=== PATIENT | male | born 1980 | race Caucasian/White ===

== ENCOUNTER 2016-06-02 15:33 | Emergency (ER) | payer MEDICAID ==
[2016-06-02 15:40] VITALS: BP 116/74
--- NOTE | 2016-06-02 15:58 | EDM.PDOC ---
ED HPI HEADACHE COMPLAINT - General Chief Complaint: Headache Stated Complaint: migraine Time Seen by Provider: 06/02/16 15:40 Source of Information: Reports: Patient History Limitations: Reports: No limitations - History of Present Illness INITIAL COMMENTS - FREE TEXT/NARRATIVE: The patient presents by EMS ground ambulance and states he woke up with the "worst headache of my life" and states it is left frontoparietal and states it is "pressure" and rates it at 8/10. He denies visual changes, facial droop, speech difficulty, seizures, neck or back pain or stiffness, and denies focal weakness or numbness or paresthesias. He denies other symptoms or complaints. He denies injuries or accidents and denies blows to the head or LOC. He admits to frequent marijuana use. He denies alcohol use today. - Related Data Allergies/ADRs: Allergies Allergy/AdvReac Type Severity Reaction Status Date / Time banana [Banana] Allergy Anaphylactic Verified 06/02/16 15:40 Shock pear [Pear] Allergy Anaphylactic Verified 06/02/16 15:40 Shock Penicillins Allergy Rash and Verified 06/02/16 15:40 hives Home Meds: Home Meds Albuterol [IJD: Ventolin HFA] 1 puff INH Q4HR PRN 01/15/16 [History] Albuterol [Proventil Neb Soln] 3 ml INH Q4HR PRN 01/15/16 [History] Ibuprofen [IJD: Ibuprofen] 600 mg PO .EVERY 8 HOURS PRN 06/02/16 [History] Past Medical History HEENT History: Reports: Impaired vision (Wears glasses.). Denies: Allergic rhinitis, Hard of hearing Cardiovascular History: Reports: Arrhythmia, High cholesterol, Other (see below) . Denies: Afib, Angina, Blood clots/VTE/DVT, CAD, Heart Failure, Hypertension, Syncope Other Cardiovascular History: Cardiomegaly by chest x-ray, chronic bradycardia of unknown etiology initially diagnosed on 12/04/13 with apparent cardiology consultation at that time, history of dyslipidemia and mild obesity with no current medical therapy Respiratory History: Reports: Asthma, Intubation, previous, Other (see below). Denies: COPD, Intubation, difficult, PE, Pneumothorax, Sleep apnea, TB Other Respiratory History: Intubation with cholecystectomy Gastrointestinal History: Reports: Cholelithiasis, Chronic constipation, Diverticulosis, Gastritis, GERD, Hemorrhoids, Hiatal hernia, Other (see below). Denies: Celiac disease, Colon polyp, GI bleed, Hepatitis, Inflammatory bowel disease, Irritable bowel syndrome, Pancreatitis, PUD Other Gastrointestinal History: Small hiatal hernia with peptic reflux disease by upper GI and small bowel series, dysfunctional gallbladder requiring surgery as below, diverticulosis by CT scan, negative workup for suspected Crohn's disease with previous EGD and colonoscopy by patient history Genitourinary History: Reports: None. Denies: BPH, Chronic renal insuffiency, Renal calculus, STD, Urinary incontinence, UTI, recurrent Musculoskeletal History: Reports: Arthritis, Back pain, chronic, Fracture, Osteoarthritis, Other (see below). Denies: Amputation, Gout, RA, SLE Other Musculoskeletal History: Chip fracture of the distal phalanx of digit #2 of the left foot on 05/07/15 Neurological History: Reports: None. Denies: Cerebral aneurysms, Concussion, CVA, Headaches, chronic, Head trauma, Migraines, Seizure, TIA Psychiatric History: Reports: Addiction, Anxiety, Depression, Other (see below) . Denies: Abuse, victim of, ADD, ADHD, Psych Hospitalization(s), PTSD, Suicide attempt, Suicidal ideation Other Psychiatric History: Tobacco and marijuana use as below Endocrine/Metabolic History: Reports: None. Denies: Diabetes, type I, Diabetes , type II, Hypothyroidism, IDDM Hematologic History: Reports: None. Denies: Anemia, Blood transfusion(s), Iron deficiency Immunologic History: Reports: None. Denies: AIDS, HIV, SLE Oncologic (Cancer) History: Reports: None. Denies: Basal cell carcinoma, Hodgkin's Lymphoma, Leukemia, Lymphoma, Malignant melanoma, Non-Hodgkin's Lymphoma Dermatologic History: Reports: None. Denies: Eczema, Psoriasis - Infectious Disease History Infectious Disease History: Reports: Chicken pox (As a teenager). Denies: C- difficile, Measles, Mononucleosis, MRSA, Mumps, Pertussis (whooping cough), Rheumatic Fever, Rubella, Scarlet fever, Shingles, TB, VRE - Past Surgical History Head Surgeries/Procedures: Reports: None HEENT Surgical History: Reports: Adenoidectomy, Oral surgery, Tonsillectomy, Other (see below) Other HEENT Surgeries/Procedures: [place] teeth extraction x4 at age 14, tonsillectomy and adenoidectomy at age 1 Cardiovascular Surgical History: Reports: None. Denies: Varicose, Vascular surgery Respiratory Surgical History: Reports: None. Denies: Lung Biopsies, Thoracentesis GI Surgical History: Reports: Cholecystectomy, Colonoscopy, EGD, Hernia, abdominal, Other (see below). Denies: Appendectomy, Hernia, inguinal, Hernia repair/other Other GI Surgeries/Procedures: Laparoscopic cholecystectomy with concomitant local hernia repair in May 2013, EGD and colonoscopy in about September of 2014 by patient history Male Surgical History: Reports: Circumcision, Other (see below) Other Male Surgeries/Procedures: Circumcision as an infant, bilateral testicular torsion reversal in 2000 Neurological Surgical History: Reports: None. Denies: C-Spine, Laminectomy, Lumbar spine, Vertebroplasty Musculoskeletal Surgical History: Reports: None. Denies: Arthroscopic procedure , Carpal tunnel, Ganglion cyst, ORIF, Shoulder surgery Oncologic Surgical History: Reports: None Dermatological Surgical History: Reports: None - Past Imaging History Past Imaging History: Reports: Angiography (Negative catheterization on 11/26/13 at [facility] by patient history), CAT scan (Last CT scan of the abdomen and pelvis on 06/25/14 with previous evaluation on 05/14/13, CT of the brain on 01/31/15), Upper GI x-ray/series (Upper GI with small bowel series on ) Social & Family History - Family History Cardiac: Reports: Hypertension, Other (see below) Other Cardiac Family History: Hypertension in mother Endocrine/Metabolic: Reports: Diabetes, type II, IDDM, Other (see below) Other Endocrine/Metabolic Family History: IDDM in mother Oncologic: Reports: Other (see below) Other Oncologic Family History: Maternal aunt with unknown type of cancer - Tobacco Use Smoking Status *Q: Former Smoker Years of Tobacco use: 18 Packs/Tins Daily: 0.1 Used Tobacco, but Quit: Yes Month Tobacco Last Used: discontinuation of cigarette use in March 2013 Second Hand Smoke Exposure: No - Caffeine Use Caffeine Use: Reports: Soda. Denies: Coffee, Energy drinks, Tea, Other Caffeine Use Comment: 6 sodas per day - Alcohol Use Days Per Week of Alcohol Use: 0 (no previous history of DWI, etc.) Number of Drinks Per Day: 6 (previous 6 beers or mixed drinks per month) Total Drinks Per Week: 0 - Recreational Drug Use Recreational Drug Use: Yes Drug Use in Last 12 Months: Yes Recreational Drug Type: Reports: Marijuana/Hashish (Started marijuana use at age 17 with current daily use). 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 - Physical Exam Exam: See Below Exam Limited By: No limitations General Appearance: alert, WD/WN, no apparent distress Eye Exam: bilateral eye: EOMI, normal fundi, normal inspection, PERRL, vision changes, other (Pupils 4-2 mm and reactive to light bilaterally. EOMI. VF and VA WNL grossly. Fundoscopic exam shows no papilledema) Ears: normal external exam, normal canal, hearing grossly normal, normal TMs Nose: normal inspection, normal mucosa, no blood Throat/Mouth: Normal inspection, Normal lips, Normal teeth, Normal gums, Normal oropharynx, Normal voice Head Exam: atraumatic, normocephalic Neck: normal inspection, supple, non-tender, full range of motion, other (No pain on palpation of cervical spinous processes and no palpable step-offs or defects. ). No: lymphadenopathy (L), lymphadenopathy (R), tender lateral, tender midline Respiratory/Chest: no respiratory distress, lungs clear, normal breath sounds, no accessory muscle use, chest non-tender Cardiovascular: normal peripheral pulses, regular rate, rhythm, no edema, no gallop, no murmur, no rub GI/Abdominal: normal bowel sounds, soft, non tender, no organomegaly, no distention Neuro Exam (Abbreviated): alert, oriented, CN II-XII intact, normal cognition, normal gait, normal reflexes, no motor/sensory deficits, other (GCS 15. No pronator drift of arms or legs. No dysmetria. No clonus or spasticity. Babinksi absent in bilateral LE. Alok absent in bilateral UE. Sensation intact to LT and PP throughout face, neck, trunk, abdomen, and extremities. Motor strength 5/ 5 throughout. Speech fluent with no dysarthria or aphasia. Calculation, naming, and praxis intact.) DTR: 2+: patella (R), patella (L), achilles (R), achilles (L) Back Exam: normal inspection, full range of motion, other (No pain on palpation of thoracic or lumbar spinous processes and no palpable step-offs or defects.). No: paraspinal tenderness, vertebral tenderness Extremities: normal inspection, normal range of motion, non-tender, no pedal edema, normal capillary refill Psychiatric: normal affect, normal mood Skin Exam: Warm, Dry, Intact, Normal color, No rash Course - Vital Signs Last Recorded V/S: Last Vital Signs Temp 36.6 C 06/02/16 15:35 Pulse 55 L 06/02/16 15:35 Resp 22 H 06/02/16 15:35 BP 116/74 06/02/16 15:35 Pulse Ox 100 06/02/16 15:35 - Orders/Labs/Meds Orders: Active Orders 24 hr Category Date Time Status Oxygen Therapy, ED [RC] ASDIRECTED Care 06/02/16 16:35 Active Head wo Cont [CT] Stat Exams 06/02/16 15:52 Taken Sodium Chloride 0.9% [Normal Saline] 500 ml Med 06/02/16 16:15 Active IV ASDIRECTED Medication Orders Sodium Chloride (Normal Saline) 500 mls @ 100 mls/hr IV ASDIRECTED NAILA Last Admin: 06/02/16 16:19 Dose: 100 mls/hr Labs: Laboratory Tests 06/02/16 06/02/16 06/02/16 Range/Units 16:05 16:05 16:05 WBC 8.4 (4.0-10.2) K/uL RBC 5.17 (4.33-5.41) M/uL Hgb 15.2 (13.1-16.8) g/dL Hct 44.0 (39.0-49.0) % MCV 85.1 (84.0-98.0) fL MCH 29.4 (28.2-33.3) pg MCHC 34.5 (31.7-36.0) g/dL RDW 13.3 (11.2-14.1) % Plt Count 256 (150-350) K/uL Neut % (Auto) 73.4 (45.0-80.0) % Lymph % (Auto) 17.1 (10.0-50.0) % [place] % (Auto) 8.6 (2.0-14.0) % Eos % (Auto) 0.8 (0.0-5.0) % Baso % (Auto) 0.1 (0.0-2.0) % Neut # (Auto) 6.13 (1.40-7.00) K/uL Lymph # (Auto) 1.43 (0.50-3.50) K/uL [place] # (Auto) 0.72 (0.00-1.00) K/uL Eos # (Auto) 0.07 (0.00-0.50) K/uL Baso # (Auto) 0.01 (0.00-0.20) K/uL PT 10.7 (9.8-11.7) SEC INR 1.0 APTT 26.8 (23.5-30.0) SEC Sodium 140 (136-145) mmol/L Potassium 3.7 (3.5-5.1) mmol/L Chloride 107 (98-107) mmol/L Carbon Dioxide 19.9 L (21.0-32.0) mmol/L BUN 22 H (7-18) mg/dL Creatinine 0.69 (0.51-1.17) mg/dL Est Cr Clr Drug Dosing 162.45 mL/min Estimated GFR (MDRD) > 60 mL/min Glucose 94 (74-106) mg/dL Calcium 8.1 L (8.5-10.1) mg/dL Total Bilirubin 0.6 (0.2-1.0) mg/dL AST 18 (15-37) U/L ALT 35 (12-78) U/L Alkaline Phosphatase 76 (46-116) IU/L Total Protein 7.2 (6.4-8.2) g/dL Albumin 3.9 (3.4-5.0) g/dL Urine Opiates Screen (NEGATIVE) Urine Methadone Screen (NEGATIVE) U Acetaminophen Screen (NEGATIVE) Ur Barbiturates Screen (NEGATIVE) Ur Tricyclics Screen (NEGATIVE) Ur Phencyclidine Scrn (NEGATIVE) Ur Amphetamine Screen (NEGATIVE) U Methamphetamines Scrn (NEGATIVE) U Benzodiazepines Scrn (NEGATIVE) U Cocaine Metab Screen (NEGATIVE) U Marijuana (THC) Screen (NEGATIVE) Ethyl Alcohol 0.000 (0.000-0.080) g/dL 06/02/16 Range/Units 16:20 WBC (4.0-10.2) K/uL RBC (4.33-5.41) M/uL Hgb (13.1-16.8) g/dL Hct (39.0-49.0) % MCV (84.0-98.0) fL MCH (28.2-33.3) pg MCHC (31.7-36.0) g/dL RDW (11.2-14.1) % Plt Count (150-350) K/uL Neut % (Auto) (45.0-80.0) % Lymph % (Auto) (10.0-50.0) % [place] % (Auto) (2.0-14.0) % Eos % (Auto) (0.0-5.0) % Baso % (Auto) (0.0-2.0) % Neut # (Auto) (1.40-7.00) K/uL Lymph # (Auto) (0.50-3.50) K/uL [place] # (Auto) (0.00-1.00) K/uL Eos # (Auto) (0.00-0.50) K/uL Baso # (Auto) (0.00-0.20) K/uL PT (9.8-11.7) SEC INR APTT (23.5-30.0) SEC Sodium (136-145) mmol/L Potassium (3.5-5.1) mmol/L Chloride (98-107) mmol/L Carbon Dioxide (21.0-32.0) mmol/L BUN (7-18) mg/dL Creatinine (0.51-1.17) mg/dL Est Cr Clr Drug Dosing mL/min Estimated GFR (MDRD) mL/min Glucose (74-106) mg/dL Calcium (8.5-10.1) mg/dL Total Bilirubin (0.2-1.0) mg/dL AST (15-37) U/L ALT (12-78) U/L Alkaline Phosphatase (46-116) IU/L Total Protein (6.4-8.2) g/dL Albumin (3.4-5.0) g/dL Urine Opiates Screen Negative (NEGATIVE) Urine Methadone Screen Negative (NEGATIVE) U Acetaminophen Screen Negative (NEGATIVE) Ur Barbiturates Screen Negative (NEGATIVE) Ur Tricyclics Screen Negative (NEGATIVE) Ur Phencyclidine Scrn Negative (NEGATIVE) Ur Amphetamine Screen Negative (NEGATIVE) U Methamphetamines Scrn Negative (NEGATIVE) U Benzodiazepines Scrn Negative (NEGATIVE) U Cocaine Metab Screen Negative (NEGATIVE) U Marijuana (THC) Screen Positive H (NEGATIVE) Ethyl Alcohol (0.000-0.080) g/dL Meds: Medications Generic Name Dose Route Start Last Admin Trade Name Freq PRN Reason Stop Dose Admin Sodium Chloride 500 mls @ 100 mls/hr 06/02/16 16:15 06/02/16 16:19 Normal Saline IV 100 mls/hr ASDIRECTED NAILA Administration Discontinued Medications Generic Name Dose Route Start Last Admin Trade Name Freq PRN Reason Stop Dose Admin Calcium Carbonate/Glycine 1,000 mg 06/02/16 16:30 06/02/16 16:36 Tums PO 06/02/16 16:31 1,000 mg ONETIME ONE Administration Diphenhydramine HCl 50 mg 06/02/16 16:35 06/02/16 16:45 Benadryl IVPUSH 06/02/16 16:36 50 mg ONETIME ONE Administration Ketorolac Tromethamine 30 mg 06/02/16 16:35 06/02/16 16:45 Toradol IVPUSH 06/02/16 16:36 30 mg ONETIME ONE Administration Lorazepam 2 mg 06/02/16 16:35 06/02/16 16:46 Ativan IVPUSH 06/02/16 16:36 2 mg ONETIME ONE Administration Ondansetron HCl 4 mg 06/02/16 16:30 06/02/16 16:38 Zofran IVPUSH 06/02/16 16:31 4 mg ONETIME ONE Administration - Re-Assessments/Exams Free Text/Narrative Re-Assessment/Exam: 06/02/16 20:21 Significant improvement with migraine and nausea with current treatment. Departure - Departure Time of Disposition: 20:21 Disposition: Home, Self-Care 01 Clinical Impression: Migraine Qualifiers: Migraine type: without aura Status migrainosus presence: without status migrainosus Intractability: not intractable Qualified Code(s): G43.009 - Migraine without aura, not intractable, without status migrainosus Instructions: Migraine Headache Forms: ED Department Discharge Additional Instructions: 1. IV inserted per EMS in transit. 2. Oxygen by nasal cannula at 2 L in ER. 3. NS at 100 mL/hour in ER. 4. Oxygen per NC at 2L. 5. Toradol 30 mg IV in ER. 6. Zofran 4 mg IV in ER. 7. Ativan 2 mg IV. 8. Diphenhydramine 50 mg IV in ER. 9. Calcium carbonate 1,000 mg PO in ER for mild hypocalcemia. 10. Followup with PCP next week to discuss migraines and consideration for prescription for abortive and prophylactic medications. 11. Return to ER with severe/refractory headache, nausea and vomiting, visual changes, speech difficulty, facial droop, focal weakness or numbness or tingling , or other emergent concerns. - My Orders Last 24 Hours: My Active Orders 06/02/16 15:52 Head wo Cont [CT] Stat 06/02/16 16:15 Sodium Chloride 0.9% [Normal Saline] 500 ml IV ASDIRECTED 06/02/16 16:35 Oxygen Therapy, ED [RC] ASDIRECTED - Assessment/Plan Last 24 Hours: My Active Orders 06/02/16 15:52 Head wo Cont [CT] Stat 06/02/16 16:15 Sodium Chloride 0.9% [Normal Saline] 500 ml IV ASDIRECTED 06/02/16 16:35 Oxygen Therapy, ED [RC] ASDIRECTED Assessment:: Migraine Plan: 1. IV inserted per EMS in transit. 2. Oxygen by nasal cannula at 2 L in ER. 3. NS at 100 mL/hour in ER. 4. Oxygen per NC at 2L. 5. Toradol 30 mg IV in ER. 6. Zofran 4 mg IV in ER. 7. Ativan 2 mg IV. 8. Diphenhydramine 50 mg IV in ER. 9. Calcium carbonate 1,000 mg PO in ER for mild hypocalcemia. 10. May resume ibuprofen 400-800 mg or other abortive migraine medications in AM beginning 06/03/2016. 11. Followup with PCP next week to discuss migraines and consideration for prescription for abortive and prophylactic medications. 12. Return to ER with severe/refractory headache, nausea and vomiting, visual changes, speech difficulty, facial droop, focal weakness or numbness or tingling , or other emergent concerns.
[2016-06-02] MEDS ORDERED: Sodium Chloride 0.9% 500 ML IV SCH (16:15)
[2016-06-02 16:27] LABS: CHLORIDE,CL 107 mmol/L (98-107); SODIUM,NA 140 mmol/L (136-145)
[2016-06-02] MEDS ORDERED: Calcium Carbonate 500 MG Tab.Chew PO ONE (16:30)
[2016-06-02] MEDS ORDERED: Ondansetron 4 MG/2 ML SDV IVPUSH ONE (16:30)
[2016-06-02] MEDS ORDERED: Ketorolac 30 MG/ML SDV IVPUSH ONE (16:35)
[2016-06-02] MEDS ORDERED: diphenhydrAMINE 50 MG/ML SDV IVPUSH ONE (16:35)
[2016-06-02] MEDS ORDERED: LORazepam 2 MG/ML MDV IVPUSH ONE (16:35)
== END 2016-06-02 21:39 | disposition home or self-care (01) ==
LOC: LL.ED 15:33
DX: G43.009 Migraine without aura, not intractable, without status migrainosus (principal); J45.909 Unspecified asthma, uncomplicated; E78.00 Pure hypercholesterolemia, unspecified; K21.9 Gastro-esophageal reflux disease without esophagitis; F41.9 Anxiety disorder, unspecified; F32.9 Major depressive disorder, single episode, unspecified; Z87.891 Personal history of nicotine dependence; Z90.49 Acquired absence of other specified parts of digestive tract; Z88.0 Allergy status to penicillin
CPT/HCPCS: 36415; 70450; 80053; 80305; 85025; 85610; 85730; 96361; 96374; 96375; 99283; A9270; G0480; J1200; J1885; J2060; J2405; J7040

== ENCOUNTER 2017-01-20 02:23 | Emergency (ER) | payer MEDICAID ==
[2017-01-20 02:32] VITALS: BP 122/70
--- NOTE | 2017-01-20 03:10 | EDM.PDOC ---
ED HPI GENERAL MEDICAL PROBLEM - General Chief Complaint: General Stated Complaint: SOB, ear pressure, chills Time Seen by Provider: 01/20/17 02:35 Source of Information: Reports: Patient History Limitations: Reports: No Limitations - History of Present Illness INITIAL COMMENTS - FREE TEXT/NARRATIVE: Patient is a 36-year-old male who presents to the ER with chief complaint of not feeling well frontal and sinus congestion cough denies fever,has postnasal drip with difficulty breathing at times states that this started about a week before Luis was good for about 4 days around Luis and now has gotten worse. His whole family and coworkers are symptomatic at this time. Onset: Gradual Duration: Week(s):, Getting Worse Location: Reports: Chest Quality: Reports: Burning (With cough), Pressure (Maxillary sinus pressure) Severity: Mild Improves with: Reports: None Worsens with: Reports: None Context: Reports: Sick Contact Associated Symptoms: Reports: Cough, Shortness of Breath Treatments DIRECTOR CARDIOLOGY: Reports: Other Medication(s) Chest Pain Score (Numeric/FACES): 4 - Related Data Allergies Allergy/AdvReac Type Severity Reaction Status Date / Time banana [Banana] Allergy Anaphylactic Verified 01/20/17 02:24 Shock pear [Pear] Allergy Anaphylactic Verified 01/20/17 02:24 Shock Penicillins Allergy Rash and Verified 01/20/17 02:24 hives Home Meds: Home Meds Albuterol [IJD: Ventolin HFA] 1 puff INH Q4HR PRN 01/15/16 [History] Albuterol [Proventil Neb Soln] 3 ml INH Q4HR PRN 01/15/16 [History] Ibuprofen [IJD: Ibuprofen] 600 mg PO .EVERY 8 HOURS PRN 06/02/16 [History] Dextromethorphan HB/Doxylamine [Vicks Nyquil Cough] 10 ml PO Q6H 01/20/17 [ History] Eucalyptus Oil/Menthol/Camphor [Vicks Vaporub Ointment] 1 dose TOP Q4H PRN 01/20 [History] Guaifenesin/Pseudoephedrne HCl [Mucinex D ER Tablet] 1 tab PO Q12H PRN 01/20/17 [History] diphenhydrAMINE HCl [Benadryl] 50 mg PO Q8H PRN 01/20/17 [History] Past Medical History HEENT History: Reports: Impaired Vision Other HEENT History: Glasses Cardiovascular History: Reports: Arrhythmia, High Cholesterol, Other (See Below) Other Cardiovascular History: Cardiomegaly by chest x-ray, chronic bradycardia of unknown etiology initially diagnosed on 12/04/13 with apparent cardiology consultation at that time, history of dyslipidemia and mild obesity with no current medical therapy Respiratory History: Reports: Asthma, Intubation, Previous, Other (See Below) Other Respiratory History: Intubation with cholecystectomy Gastrointestinal History: Reports: Cholelithiasis, Chronic Constipation, Diverticulosis, Gastritis, GERD, Hemorrhoids, Hiatal Hernia, Other (See Below) Other Gastrointestinal History: Small hiatal hernia with peptic reflux disease by upper GI and small bowel series, dysfunctional gallbladder requiring surgery as below, diverticulosis by CT scan, negative workup for suspected Crohn's disease with previous EGD and colonoscopy by patient history Genitourinary History: Reports: None. Denies: BPH, Chronic Renal Insuffiency, Renal Calculus, STD, Urinary Incontinence, UTI, Recurrent Musculoskeletal History: Reports: Arthritis, Back Pain, Chronic, Fracture, Osteoarthritis, Other (See Below) Other Musculoskeletal History: Chip fracture of the distal phalanx of digit #2 of the left foot on 05/07/15 Neurological History: Reports: None Psychiatric History: Reports: Addiction, Anxiety, Depression, Other (See Below) Other Psychiatric History: Tobacco and marijuana use as below Endocrine/Metabolic History: Reports: None Hematologic History: Reports: None Immunologic History: Reports: None Oncologic (Cancer) History: Reports: None Dermatologic History: Reports: None - Infectious Disease History Infectious Disease History: Reports: Chicken Pox - Past Surgical History Head Surgeries/Procedures: Reports: None HEENT Surgical History: Reports: Adenoidectomy, Oral Surgery, Tonsillectomy, Other (See Below) GI Surgical History: Reports: Cholecystectomy, Colonoscopy, EGD, Hernia, Abdominal, Other (See Below) Male Surgical History: Reports: Circumcision, Other (See Below) Neurological Surgical History: Reports: None Oncologic Surgical History: Reports: None Dermatological Surgical History: Reports: None - Past Imaging History Past Imaging History: Reports: Angiography, CAT Scan, Upper GI X-Ray/Series Social & Family History - Family History Cardiac: Reports: Hypertension, Other (See Below) Other Cardiac Family History: Hypertension in mother Endocrine/Metabolic: Reports: Diabetes, type II, IDDM, Other (See Below) Other Endocrine/Metabolic Family History: IDDM in mother Oncologic: Reports: Other (See Below) Other Oncologic Family History: Maternal aunt with unknown type of cancer - Tobacco Use Smoking Status *Q: Former Smoker Years of Tobacco use: 18 Packs/Tins Daily: 0.1 Used Tobacco, but Quit: Yes Month Tobacco Last Used: discontinuation of cigarette use in March 2013 Second Hand Smoke Exposure: No - Caffeine Use Caffeine Use: Reports: Soda Caffeine Use Comment: 6 sodas per day - Alcohol Use Days Per Week of Alcohol Use: 0 (no previous history of DWI, etc.) Number of Drinks Per Day: 6 (previous 6 beers or mixed drinks per month) Total Drinks Per Week: 0 - Recreational Drug Use Recreational Drug Use: Yes Drug Use in Last 12 Months: Yes Recreational Drug Type: Reports: Marijuana/Hashish (Started marijuana use at age 17 with current daily use). Denies: Amphetamines (Speed), Cocaine, Heroin, Inhalants (Glues, Solvents, Aerosols), LSD (Acid), Methamphetamine, Morphine Recreational Drug Use Frequency: Daily Recreational Drug Last Use: 2 L of pop per day - Living Situation & Occupation Living situation: Reports: , with Family Occupation: Employed ED ROS GENERAL - Review of Systems Review Of Systems: See Below Constitutional: Reports: No Symptoms HEENT: Reports: Sinus Problem Respiratory: Reports: Shortness of Breath, Cough Cardiovascular: Reports: No Symptoms Endocrine: Reports: No Symptoms GI/Abdominal: Reports: No Symptoms : Reports: No Symptoms Musculoskeletal: Reports: No Symptoms Skin: Reports: No Symptoms Neurological: Reports: No Symptoms Psychiatric: Reports: No Symptoms Hematologic/Lymphatic: Reports: No Symptoms Immunologic: Reports: No Symptoms ED EXAM, GENERAL - Physical Exam Exam: See Below Exam Limited By: No Limitations General Appearance: Alert, WD/WN, No Apparent Distress Ears: Normal External Exam, Normal Canal, Hearing Grossly Normal Ear Exam: Right Ear: TM Bulging Nose: Nasal Drainage, Clear Rhinorrhea Throat/Mouth: Normal Inspection, Normal Lips, Normal Teeth, Normal Gums, Normal Oropharynx, Normal Voice, No Airway Compromise Head: Atraumatic, Normocephalic, Sinus Tenderness Neck: Normal Inspection, Supple, Non-Tender, Full Range of Motion Respiratory/Chest: Lungs Clear, Decreased Breath Sounds Cardiovascular: Normal Peripheral Pulses, Regular Rate, Rhythm, No Edema, No Gallop, No JVD, No Murmur, No Rub GI/Abdominal: Normal Bowel Sounds, Soft, Non-Tender, No Organomegaly, No Distention, No Abnormal Bruit, No Mass (Male) Exam: Deferred Rectal (Males) Exam: Deferred Back Exam: Normal Inspection, Full Range of Motion, NT Extremities: Normal Inspection, Normal Range of Motion, Non-Tender, Normal Capillary Refill, No Pedal Edema Neurological: Alert, Oriented, CN II-XII Intact, Normal Cognition, Normal Gait, Normal Reflexes, No Motor/Sensory Deficits Psychiatric: Normal Affect, Normal Mood Skin Exam: Warm, Dry, Intact, Normal Color, No Rash Lymphatic: No Adenopathy Course - Vital Signs Last Recorded V/S: Last Vital Signs Temp 98.2 F 01/20/17 02:30 Pulse 56 L 01/20/17 02:30 Resp 16 01/20/17 02:30 BP 122/70 01/20/17 02:30 Pulse Ox 100 01/20/17 02:30 - Orders/Labs/Meds Orders: Active Orders 24 hr Category Date Time Status CXR [Chest 2V] [CR] Stat Exams 01/20/17 02:37 Ordered CBC WITH AUTO DIFF [HEME] Stat Lab 01/20/17 02:50 Received Departure - Departure Time of Disposition: 03:30 Disposition: Home, Self-Care 01 Condition: Fair Clinical Impression: Acute sinusitis - Discharge Information Referrals: PCP,None [Primary Care Provider] - - Problem List & Annotations (1) Acute sinusitis SNOMED Code(s): 94556949 Code(s): J01.90 - ACUTE SINUSITIS, UNSPECIFIED Status: Acute Annotation/ Comment:: White count is normal chest x-ray is normal this appears to be viral in nature and this time no antibiotic treatment is warranted we will place him on Claritin-D one tablet once a day for symptomatic relief. - Problem List Review Problem List Initiated/Reviewed/Updated: Yes - My Orders Last 24 Hours: My Active Orders 01/20/17 02:37 CXR [Chest 2V] [CR] Stat 01/20/17 02:50 CBC WITH AUTO DIFF [HEME] Stat - Assessment/Plan Last 24 Hours: My Active Orders 01/20/17 02:37 CXR [Chest 2V] [CR] Stat 01/20/17 02:50 CBC WITH AUTO DIFF [HEME] Stat Plan: Patient will be treated for symptomatic relief Claritin-D one tablet every 24 hours a prescription was given to him
== END 2017-01-20 03:40 | disposition home or self-care (01) ==
LOC: LL.ED 02:23
DX: J01.90 Acute sinusitis, unspecified (principal); Z91.018 Allergy to other foods; Z88.0 Allergy status to penicillin; Z79.899 Other long term (current) drug therapy
CPT/HCPCS: 36415; 71020; 85025; 99285

== ENCOUNTER 2019-01-06 22:26 | Emergency (ER) | payer BC, MEDICAID ==
[2019-01-06 22:40] VITALS: BP 121/70; PULSE 70
--- NOTE | 2019-01-06 22:43 | EDM.PDOC ---
ED HPI GENERAL MEDICAL PROBLEM - General Chief Complaint: General Stated Complaint: cold symptoms/congestion Time Seen by Provider: 01/06/19 22:29 Source of Information: Reports: Patient History Limitations: Reports: No Limitations - History of Present Illness INITIAL COMMENTS - FREE TEXT/NARRATIVE: Patient comes to ER with complaint of URI symptoms. First became ill on Saturday , 3 days ago. Describes nasal congestion, fatigue and body aches. Had one loose stool yesterday. Body aches improved. Tried Claritin D for nasal congestion and it did not help. No other acute changes. Whole family is ill with similar symptoms. and two kids were put on antibiotics but had only been ill for 2-4 days. Patient is not certain why antibiotics were needed. Another son also just became ill at same time as patient and is not on antibiotics. - Related Data Allergies Allergy/AdvReac Type Severity Reaction Status Date / Time banana [Banana] Allergy Anaphylactic Verified 01/28/18 06:49 Shock pear [Pear] Allergy Anaphylactic Verified 01/28/18 06:49 Shock Penicillins Allergy Rash and Verified 01/28/18 06:49 hives Home Meds: Home Meds Albuterol [IJD: Ventolin HFA] 1 puff INH Q4HR PRN 01/15/16 [History] Albuterol [Proventil Neb Soln] 3 ml INH Q4HR PRN 01/15/16 [History] Dextromethorphan HB/Doxylamine [Vicks Nyquil Cough] 10 ml PO Q6H 01/20/17 [ History] Eucalyptus Oil/Menthol/Camphor [Vicks Vaporub Ointment] 1 dose TOP Q4H PRN 01/20 [History] diphenhydrAMINE HCl [Benadryl] 50 mg PO Q8H PRN 01/20/17 [History] Cyclobenzaprine [Flexeril] 10 mg PO TID PRN #30 tab 01/28/18 [Rx] Past Medical History HEENT History: Reports: Impaired Vision. Denies: Allergic Rhinitis, Cataract, Hard of Hearing, Macular Degeneration, Retinal Detachment Other HEENT History: Patient currently wears glasses. Cardiovascular History: Reports: Arrhythmia, High Cholesterol, Other (See Below) . Denies: Afib, Aneurysm, Blood Clots/VTE/DVT, CAD, Heart Failure, Heart Murmur , Hypertension, FL, PVD, Syncope Other Cardiovascular History: Cardiomegaly by chest x-ray, chronic bradycardia of unknown etiology initially diagnosed on 12/04/13 with apparent cardiology consultation at that time, history of dyslipidemia and mild obesity with no current medical therapy. Respiratory History: Reports: Asthma, Bronchitis, Recurrent, COPD, Intubation, Previous, Other (See Below). Denies: Intubation, Difficult, PE, Pneumothorax, Sleep Apnea, TB Other Respiratory History: Intubation with cholecystectomy Gastrointestinal History: Reports: Cholelithiasis, Chronic Constipation, Diverticulosis, Gastritis, GERD, Hemorrhoids, Hiatal Hernia, Other (See Below). Denies: Bowel Obstruction, Celiac Disease, Chronic Diarrhea, Fecal Incontinence, Hepatitis, Inflammatory Bowel Disease, Irritable Bowel Syndrome, Jaundice, Pancreatitis, PUD Other Gastrointestinal History: Small hiatal hernia with peptic reflux disease by upper GI and small bowel series, dysfunctional gallbladder requiring surgery as below, diverticulosis by CT scan, negative workup for suspected Crohn's disease with previous EGD and colonoscopy by patient history Genitourinary History: Reports: None. Denies: BPH, Chronic Renal Insuffiency, Prostate Disorder, Renal Calculus, STD, Urinary Incontinence, UTI, Recurrent Musculoskeletal History: Reports: Arthritis, Back Pain, Chronic, Fracture, Osteoarthritis, Other (See Below). Denies: Amputation, Gout, Neck Pain, Chronic , RA, SLE Other Musculoskeletal History: Chip fracture of the distal phalanx of digit #2 of the left foot on 05/07/15 Neurological History: Reports: Headaches, Chronic, Migraines. Denies: Cerebral Aneurysms, Concussion, CVA, Head Trauma, MS, Neuropathy, Peripheral, Parkinson's , Seizure, TIA Psychiatric History: Reports: Addiction, Anxiety, Depression, Other (See Below) . Denies: Abuse, Victim of, ADHD, Psych Hospitalization(s), PTSD, Suicide Attempt, Suicidal Ideation Other Psychiatric History: Tobacco and marijuana use as below Endocrine/Metabolic History: Reports: Obesity/BMI 30+. Denies: Diabetes, Type I , Diabetes, Type II, Diabetes Mellitus, Type 3c, Hypothyroidism, IDDM Hematologic History: Reports: None. Denies: Anemia, Blood Transfusion(s), Iron Deficiency Immunologic History: Reports: None. Denies: AIDS, HIV, SLE Oncologic (Cancer) History: Reports: None. Denies: Basal Cell Carcinoma, Colon , Hodgkin's Lymphoma, Leukemia, Lymphoma, Malignant Melanoma, Non-Hodgkin's Lymphoma, Prostate, Squamous Cell Carcinoma Dermatologic History: Reports: None. Denies: Eczema, Psoriasis - Infectious Disease History Infectious Disease History: Reports: Chicken Pox. Denies: C-Difficile, Measles , Meningitis, Mononucleosis, MRSA, Mumps, Pertussis (Whooping Cough), Rubella, Scarlet Fever, Shingles, TB, VRE - Past Surgical History Head Surgeries/Procedures: Reports: None HEENT Surgical History: Reports: Adenoidectomy, Oral Surgery, Tonsillectomy, Other (See Below). Denies: Cataract Surgery, Eye Surgery, Laser Surgery, Myringotomy w Tube(s), Naso-Sinus Surgery Other HEENT Surgeries/Procedures: [place] teeth extraction 4 at age 14. Tonsillectomy and adenoidectomy at age 1. Cardiovascular Surgical History: Reports: None. Denies: Varicose, Vascular Surgery Respiratory Surgical History: Reports: None. Denies: Thoracentesis GI Surgical History: Reports: Cholecystectomy, Colonoscopy, EGD, Hernia, Abdominal, Other (See Below). Denies: Appendectomy, Hernia, Inguinal, Hernia Repair/Other, Polypectomy Other GI Surgeries/Procedures: Laparoscopic cholecystectomy with concomitant low -dose hernia repair in May 2013. EGD and colonoscopy in about September 2014 by patient history. Male Surgical History: Reports: Circumcision, Other (See Below). Denies: TURP-Transurethral Resection of Prostate, Vasectomy Other Male Surgeries/Procedures: Circumcision as an . Bilateral testicular torsion reversal in 2000. Endocrine Surgical History: Reports: None. Denies: Thyroid Biopsy Neurological Surgical History: Reports: None. Denies: C-Spine, Discectomy, Laminectomy, Lumbar Spine, Sacral Spine, Spinal Fusion, Thoracic Spine, Vertebroplasty Musculoskeletal Surgical History: Reports: None. Denies: Arthroscopic Procedure , Carpal Tunnel, Ganglion Cyst, Joint Replacement, ORIF, Shoulder Surgery Oncologic Surgical History: Reports: None Dermatological Surgical History: Reports: None - Past Imaging History Past Imaging History: Reports: Angiography (Negative heart catheterization on at [facility] by patient history.), CAT Scan (CT scan of the head on 06/02/16 [address] 01/31/15. CT of the abdomen and pelvis on 04/24/16 with previous evaluations on 06/25/14 and 05/14/13.), Upper GI X-Ray/Series (08/05/14.) Social & Family History - Family History Cardiac: Reports: Hypertension, Other (See Below) Other Cardiac Family History: Hypertension in mother Endocrine/Metabolic: Reports: Diabetes, type II, IDDM, Other (See Below) Other Endocrine/Metabolic Family History: IDDM in mother Oncologic: Reports: Other (See Below) Other Oncologic Family History: Maternal aunt with unknown type of cancer - Caffeine Use Caffeine Use: Reports: Tea (Four glasses per day). Denies: Coffee, Energy Drinks, Soda Caffeine Use Comment: 6 sodas per day - Sexual History Sexual History: Reports: Single Partner - Living Situation & Occupation Living situation: Reports: (2010, 4 children), with Family Occupation: Employed ([employer]. 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 Denies: Fever, Chills, Night Sweats, Diaphoresis HEENT: Reports: Sinus Problem. Denies: Ear Discharge, Ear Pain, Eye Discharge, Eye Pain, Rhinitis, Throat Pain, Vertigo, Vision Change Respiratory: Reports: No Symptoms. Denies: Cough Cardiovascular: Reports: No Symptoms GI/Abdominal: Reports: Diarrhea, Decreased Appetite. Denies: Abdominal Pain, Melena, Nausea, Vomiting : Reports: No Symptoms Musculoskeletal: Reports: Other (body aches) Skin: Reports: No Symptoms Neurological: Reports: No Symptoms. Denies: Headache Psychiatric: Reports: No Symptoms Hematologic/Lymphatic: Reports: No Symptoms Immunologic: Reports: No Symptoms ED EXAM, GENERAL - Physical Exam Exam: See Below Exam Limited By: No Limitations General Appearance: Alert, WD/WN, No Apparent Distress Eye Exam: Bilateral Eye: EOMI, PERRL Ears: Normal External Exam, Normal Canal, Hearing Grossly Normal, Normal TMs Nose: Normal Inspection Throat/Mouth: Normal Inspection, Normal Lips, Normal Oropharynx, Normal Voice, No Airway Compromise Head: Atraumatic, Normocephalic Neck: Normal Inspection, Supple, Non-Tender, Full Range of Motion Respiratory/Chest: No Respiratory Distress, Lungs Clear, Normal Breath Sounds, No Accessory Muscle Use, Chest Non-Tender Cardiovascular: Normal Peripheral Pulses, Regular Rate, Rhythm, No Murmur Peripheral Pulses: 2+: Radial (L), Radial (R) GI/Abdominal: Normal Bowel Sounds, Soft, Non-Tender, No Distention (Male) Exam: Deferred Rectal (Males) Exam: Deferred Back Exam: No: Muscle Spasm Extremities: Normal Range of Motion, Normal Capillary Refill Neurological: Alert, Oriented, Normal Cognition, Normal Gait Psychiatric: Normal Affect, Normal Mood Skin Exam: Warm, Dry, Intact, Normal Color Course - Vital Signs Last Recorded V/S: Last Vital Signs Temp 36.3 C 01/06/19 22:39 Pulse 70 01/06/19 22:39 Resp 20 01/06/19 22:39 BP 121/70 01/06/19 22:39 Pulse Ox 98 01/06/19 22:39 - Re-Assessments/Exams Free Text/Narrative Re-Assessment/Exam: 01/06/19 22:50 Suspect viral URI. No further testing performed at this time--patient afebrile and no focal findings on exam. Reassurance. Follow up as needed. Departure - Departure Time of Disposition: 22:42 Disposition: Home, Self-Care 01 Condition: Good Clinical Impression: Viral infection - Discharge Information *PRESCRIPTION DRUG MONITORING PROGRAM REVIEWED*: Not Applicable *COPY OF PRESCRIPTION DRUG MONITORING REPORT IN PATIENT DRAKE: Not Applicable Instructions: Viral Respiratory Infection, [id number] Forms: ED Department Discharge Additional Instructions: Follow up as needed if there are problems. OK to try over the counter cold remedies but they often are not very helpful. Tylenol or ibuprofen for aches/discomfort as needed. Stay well hydrated!
== END 2019-01-06 23:02 | disposition home or self-care (01) ==
LOC: LL.ED 22:26
DX: B34.9 Viral infection, unspecified (principal); J44.9 Chronic obstructive pulmonary disease, unspecified; E66.9 Obesity, unspecified; Z68.30 Body mass index [BMI] 30.0-30.9, adult; Z88.0 Allergy status to penicillin; Z91.018 Allergy to other foods
CPT/HCPCS: 99282; 99283

== ENCOUNTER 2019-02-05 22:26 | Emergency (ER) | payer BC ==
[2019-02-05 22:35] VITALS: BP 138/83; PULSE 67
--- NOTE | 2019-02-05 22:41 | EDM.PDOC ---
ED HPI GENERAL MEDICAL PROBLEM - General Chief Complaint: Lower Extremity Injury/Pain Stated Complaint: ingrown toenail Time Seen by Provider: 02/05/19 22:40 Source of Information: Reports: Patient, Old Records ([facility] chart/EMR.) History Limitations: Reports: No Limitations - History of Present Illness INITIAL COMMENTS - FREE TEXT/NARRATIVE: The patient drove himself to the emergency room via private automobile for evaluation of an ingrown toenail with increased 6/10 right great toe pain since this morning. He did try to cut the nail out on his own and applied Neosporin prior to arrival. No history of other significant injury, etc. with patient having a previous history of ingrown toenails. No recent history of abdominal pain, heartburn, nausea, diarrhea, melena, gross hematochezia, or any food intolerance, including fatty foods, etc.. The patient also denies any recent fever, cough, wheezing, dyspnea, etc.. Onset: Today, Gradual Onset Date: 02/05/19 Duration: Constant, Getting Worse Location: Reports: Lower Extremity, Right. Denies: Radiates to Quality: Reports: Same as Previous Episode, Throbbing Severity: Moderate Improves with: Reports: None Worsens with: Reports: None Context: Reports: Other (As above). 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 Denies: Allergic Rhinitis, Hard of Hearing, Otitis Media, Retinal Detachment Other HEENT History: Patient currently wears glasses. Cardiovascular History: Reports: Arrhythmia, High Cholesterol, Other (See Below) . Denies: Afib, Blood Clots/VTE/DVT, CAD, Heart Failure, Heart Murmur, Hypertension, Syncope Other Cardiovascular History: Cardiomegaly by chest x-ray, chronic bradycardia of unknown etiology initially diagnosed on 12/04/13 with apparent cardiology consultation at that time, history of dyslipidemia and mild obesity with no current medical therapy. Respiratory History: Reports: Asthma, Bronchitis, Recurrent, COPD, Intubation, Previous, Other (See Below). Denies: Intubation, Difficult, PE, Pneumothorax, Sleep Apnea Other Respiratory History: Intubation with cholecystectomy Gastrointestinal History: Reports: Cholelithiasis, Chronic Constipation, Diverticulosis, Gastritis, GERD, Hemorrhoids, Hiatal Hernia, Other (See Below). Denies: Celiac Disease, Chronic Diarrhea, Colon Polyp, Fecal Incontinence, Hepatitis, Inflammatory Bowel Disease, Irritable Bowel Syndrome, Jaundice, Pancreatitis, PUD Other Gastrointestinal History: Small hiatal hernia with peptic reflux disease by upper GI and small bowel series, dysfunctional gallbladder requiring surgery as below, diverticulosis by CT scan, negative workup for suspected Crohn's disease with previous EGD and colonoscopy by patient history Genitourinary History: Reports: None. Denies: Acute Renal Failure, BPH, Chronic Renal Insuffiency, Renal Calculus, STD, Urinary Incontinence, UTI, Recurrent Musculoskeletal History: Reports: Arthritis, Back Pain, Chronic, Fracture, Osteoarthritis, Other (See Below). Denies: Gout, Neck Pain, Chronic, RA, SLE Other Musculoskeletal History: Chip fracture of the distal phalanx of digit #2 of the left foot on 05/07/15 Neurological History: Reports: Headaches, Chronic, Migraines. Denies: Cerebral Aneurysms, Concussion, CVA, Head Trauma, MS, Neuropathy, Peripheral, Parkinson's , Seizure, TIA Psychiatric History: Reports: Addiction, Anxiety, Depression, Other (See Below) . Denies: Abuse, Victim of, ADD, ADHD, Psych Hospitalization(s), Suicide Attempt, Suicidal Ideation Other Psychiatric History: Tobacco and marijuana use as below Endocrine/Metabolic History: Reports: Obesity/BMI 30+. Denies: Diabetes, Type I , Diabetes, Type II, Diabetes Mellitus, Type 3c, Hypothyroidism, IDDM Hematologic History: Reports: None. Denies: Anemia, Blood Transfusion(s), Iron Deficiency Immunologic History: Reports: None. Denies: AIDS, HIV, SLE Oncologic (Cancer) History: Reports: None. Denies: Basal Cell Carcinoma, Hodgkin's Lymphoma, Leukemia, Lymphoma, Malignant Melanoma, Non-Hodgkin's Lymphoma, Squamous Cell Carcinoma Dermatologic History: Reports: Cellulitis, Other (See Below) Other Dermatologic History: Recurrent ingrown toenails. - Infectious Disease History Infectious Disease History: Reports: Chicken Pox. Denies: C-Difficile, Measles , Meningitis, Mononucleosis, MRSA, Mumps, Pertussis (Whooping Cough), Rheumatic Fever, Rubella, Scarlet Fever, Shingles, TB, VRE - Past Surgical History Head Surgeries/Procedures: Reports: None HEENT Surgical History: Reports: Adenoidectomy, Oral Surgery, Tonsillectomy, Other (See Below). Denies: Eye Surgery, Laser Surgery, LASIK, Myringotomy w Tube(s), Naso-Sinus Surgery Other HEENT Surgeries/Procedures: Gardner teeth extraction 4 at age 14. Tonsillectomy and adenoidectomy at age 1. Cardiovascular Surgical History: Reports: None. Denies: Varicose Respiratory Surgical History: Reports: None. Denies: Thoracentesis GI Surgical History: Reports: Cholecystectomy, Colonoscopy, EGD, Hernia, Abdominal, Other (See Below). Denies: Appendectomy, Hernia, Inguinal, Hernia Repair/Other, Polypectomy Other GI Surgeries/Procedures: Laparoscopic cholecystectomy with concomitant low -dose hernia repair in May 2013. EGD and colonoscopy in about September 2014 by patient history. Male Surgical History: Reports: Circumcision, Other (See Below). Denies: Vasectomy Other Male Surgeries/Procedures: Circumcision as an . Bilateral testicular torsion reversal in 2000. Endocrine Surgical History: Reports: None Neurological Surgical History: Reports: None. Denies: C-Spine, Discectomy, Laminectomy, Lumbar Spine, Sacral Spine, Spinal Fusion, Thoracic Spine, Vertebroplasty Musculoskeletal Surgical History: Reports: None. Denies: Arthroscopic Procedure , Carpal Tunnel, Ganglion Cyst, Joint Replacement, ORIF, Shoulder Surgery Oncologic Surgical History: Reports: None Dermatological Surgical History: Reports: None - Past Imaging History Past Imaging History: Reports: Angiography (Negative heart catheterization on at [facility] by patient history.), CAT Scan (CT scan of the head on 06/02/16 [address] 01/31/15. CT of the abdomen and pelvis on 04/24/16 with previous evaluations on 06/25/14 and 05/14/13.), Upper GI X-Ray/Series (08/05/14.) Social & Family History - Family History Cardiac: Reports: Hypertension, Other (See Below) Other Cardiac Family History: Hypertension in mother Endocrine/Metabolic: Reports: Diabetes, type II, IDDM, Other (See Below) Other Endocrine/Metabolic Family History: IDDM in mother Oncologic: Reports: Other (See Below) Other Oncologic Family History: Maternal aunt with unknown type of cancer - Tobacco Use Smoking Status *Q: Former Smoker Tobacco Use Within Last Twelve Months: Cigarettes Years of Tobacco use: 20 Packs/Tins Daily: 0.1 Packs/Tins Daily Comment: The patient discontinued cigarette use in March 2013 with 2 cigars/day thereafter with no tobacco use since May 2018 Used Tobacco, but Quit: Yes Smoking Cessation Information Provided To Patient: No Second Hand Smoke Exposure: No Second Hand Smoke Education Provided: No - Caffeine Use Caffeine Use: Reports: Tea (Four glasses per day). Denies: Coffee, Energy Drinks, Soda - Alcohol Use Alcohol Use History: Yes Days Per Week of Alcohol Use: 0 Number of Drinks Per Day: 1 Number of Drinks Per Day Comment: Usually mixed drinks for holidays. No previous DWIs, problems with alcohol abuse, etc. Total Drinks Per Week: 0 Alcohol Use in Last Twelve Months: Yes - Recreational Drug Use Recreational Drug Use: Yes Drug Use in Last 12 Months: Yes Recreational Drug Type: Reports: Marijuana/Hashish (Started marijuana use at age 17 with previous use of 3 joints per day however discontinuation in September 2018.). Denies: Amphetamines (Speed), Heroin, Inhalants (Glues, Solvents, Aerosols), LSD (Acid), Methamphetamine, Morphine, Oxycodone - Sexual History Sexual History: Reports: Single Partner - Living Situation & Occupation Living situation: Reports: (2010, 4 children), with Family Occupation: Employed ([employer] 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 ED EXAM, GENERAL - Physical Exam Exam: See Below Exam Limited By: No Limitations General Appearance: Alert, WD/WN, No Apparent Distress Head: Atraumatic, Normocephalic Neck: Normal Inspection, Supple, Non-Tender, Full Range of Motion. No: Lymphadenopathy (L), Lymphadenopathy (R), Thyromegaly Respiratory/Chest: No Respiratory Distress, Lungs Clear, Normal Breath Sounds, No Accessory Muscle Use, Chest Non-Tender. No: Pleural Rub, Retractions Cardiovascular: Normal Peripheral Pulses, Regular Rate, Rhythm, No Edema, No Gallop, No JVD, No Murmur, No Rub. No: Gallop/S3, Gallop/S4, Friction Rub Peripheral Pulses: 2+: Radial (L), Radial (R), Dorsalis Pedis (R) GI/Abdominal: Normal Bowel Sounds, Soft, Non-Tender, No Organomegaly, No Distention, No Abnormal Bruit, No Mass, Other (Obese). No: Guarding (Male) Exam: Deferred Rectal (Males) Exam: Deferred Back Exam: Normal Inspection, Full Range of Motion. No: CVA Tenderness (L), CVA Tenderness (R), Muscle Spasm Extremities: Normal Range of Motion, No Pedal Edema, Normal Capillary Refill, Increased Warmth (Minimal), Redness (As above). No: Non-Tender (Mild tenderness over the medial aspect of the periungual region of digit #1 of the right foot with a mild ingrown toenail, +1 erythema, and mild purulent drainage with no lymphangitis, joint swelling, etc.), Joint Swelling Neurological: Alert, Oriented, CN II-XII Intact, Normal Cognition, Normal Gait, No Motor/Sensory Deficits Psychiatric: Normal Affect, Normal Mood Skin Exam: Erythema (As above), Increased Warmth, Wound/Incision (As above). No : Diaphoretic, Lymphangitis Lymphatic: No Adenopathy Course - Vital Signs Last Recorded V/S: Last Vital Signs Temp 36.6 C 02/05/19 22:45 Pulse 67 02/05/19 22:45 Resp 16 02/05/19 22:45 BP 138/83 02/05/19 22:45 Pulse Ox 96 02/05/19 22:45 Vital Signs - 24 hr 02/05/19 02/05/19 22:32 22:45 Temperature [ 36.6 C 36.6 C Temporal] Pulse, 67 67 Peripheral [ Right Brachial] Respiratory 16 16 Rate Blood Pressure 138/83 138/83 [Right Upper Arm] O2 Sat by Pulse 96 96 Oximetry - Orders/Labs/Meds Orders: Active Orders 24 hr Category Date Time Status Obtain Past Medical Record [OM.PC] Routine Oth 02/05/19 22:42 Active Labs: None Meds: Medications Discontinued Medications Generic Name Dose Route Start Last Admin Trade Name Fei PRN Reason Stop Dose Admin Trimethoprim/Sulfamethoxazole 1 tab 02/05/19 22:44 Septra Ds PO 02/05/19 22:45 ONETIME ONE - Radiology Interpretation Free Text/Narrative:: None Departure - Departure Time of Disposition: 23:05 Disposition: Home, Self-Care 01 Condition: Good Clinical Impression: Peptic reflux disease, Mixed anxiety and depressive disorder, Asthma, Dyslipidemia Cellulitis Qualifiers: Site of cellulitis: extremity Site of cellulitis of extremity: lower extremity Laterality: right Qualified Code(s): L03.115 - Cellulitis of right lower limb Osteoarthritis Qualifiers: Osteoarthritis location: multiple joints Osteoarthritis type: primary Qualified Code(s): M15.0 - Primary generalized (osteo)arthritis - Discharge Information *PRESCRIPTION DRUG MONITORING PROGRAM REVIEWED*: Not Applicable *COPY OF PRESCRIPTION DRUG MONITORING REPORT IN PATIENT DRAKE: Not Applicable Prescriptions: Sulfamethoxazole/Trimethoprim [Bactrim Ds Tablet] 1 each PO BIDMEALS #20 tablet Instructions: Ingrown Toenail, Cellulitis, Adult, [id number] Forms: ED Department Discharge Additional Instructions: 1. Follow up with your regular provider in 10-14 days as needed, if symptoms persist. Bring these discharge instructions with you to that visit.. 2. Antibacterial soap wash/soak with subsequent antibacterial dressing such as Neosporin, etc. as directed 2 times per day until the wound site completely heals. Keep the area clean and dry with activity restrictions as discussed. Never use hydrogen peroxide for wound care. 3. Tylenol 650 mg by mouth every 4 hours and/or OTC ibuprofen 2-3 tabs by mouth every 6 hours with food as directed./needed. You may stagger these medications for 48-72 hours only, which essentially means that you are receiving a pain medication about every 2 hours. 4. Congratulations about stopping smoking and marijuana use. 5. Immediately after this visit verify that your cellular telephone's voicemail has been activated and is empty. Also verify that your home telephone 's answering machine is operating properly and has space to receive messages. Note that it is sometimes necessary for us to be able to contact you at a later date to discuss your medical care. 6. Please remember that we are ALWAYS here for you and want to answer any questions you may have. Feel free to call the hospital any time and we call you back [facility]. Sepsis Event Note - Focused Exam Vital Signs: Vital Signs Temp Pulse Resp BP Pulse Ox 02/05/19 22:45 36.6 C 67 16 138/83 96 02/05/19 22:32 36.6 C 67 16 138/83 96 Date Exam was Performed: 02/05/19 Time Exam was Performed: 22:58 - Problem List & Annotations (1) Cellulitis SNOMED Code(s): 146155530 Code(s): L03.90 - CELLULITIS, UNSPECIFIED Status: Acute Priority: High Onset Date: 02/05/19 Annotation/Comment:: Wound care extensively discussed. Bactrim DS therapy initiated in the emergency room. He does not wish to have a work excuse. Proper nail care, etc. were also discussed. Qualifiers: Site of cellulitis: extremity Site of cellulitis of extremity: lower extremity Laterality: right Qualified Code(s): L03.115 - Cellulitis of right lower limb (2) Asthma SNOMED Code(s): 556312926 Code(s): J45.909 - UNSPECIFIED ASTHMA, UNCOMPLICATED Status: Acute Priority: Medium Annotation/Comment:: No recent fever or bronchitic type symptoms. Patient does have inhalers at home, however is no longer using medication. He was congratulated about his recent discontinuation of tobacco and marijuana. He may still benefit from PFTs based on previous chest x-ray findings. (3) Dyslipidemia SNOMED Code(s): 322303833 Code(s): E78.5 - HYPERLIPIDEMIA, UNSPECIFIED Status: Acute Priority: Medium Onset Date: 11/25/13 Annotation/Comment:: Note previous history of dyslipidemia with no current medical therapy. The patient would still benefit from a strict low-fat, low-cholesterol diet and weight loss in moderation with persistent obesity. (4) Mixed anxiety and depressive disorder SNOMED Code(s): 720405037 Code(s): F41.8 - OTHER SPECIFIED ANXIETY DISORDERS Status: Acute Priority : Medium Annotation/Comment:: Stable by history with no current medical therapy. Continue to observe closely by his regular provider. (5) Osteoarthritis SNOMED Code(s): 239896364 Code(s): M19.90 - UNSPECIFIED OSTEOARTHRITIS, UNSPECIFIED SITE Status: Chronic Priority: Medium Annotation/Comment:: Otherwise stable by patient history. Qualifiers: Osteoarthritis location: multiple joints Osteoarthritis type: primary Qualified Code(s): M15.0 - Primary generalized (osteo)arthritis (6) Peptic reflux disease SNOMED Code(s): 637042517 Code(s): K21.9 - GASTRO-ESOPHAGEAL REFLUX DISEASE WITHOUT ESOPHAGITIS Status: Chronic Priority: Medium Annotation/Comment:: Currently nonsymptomatic with no medical therapy required. Negative workup for Crohn's disease in the past as above. - Problem List Review Problem List Initiated/Reviewed/Updated: Yes - My Orders Last 24 Hours: My Active Orders 02/05/19 22:42 Obtain Past Medical Record [OM.PC] Routine - Assessment/Plan Last 24 Hours: My Active Orders 02/05/19 22:42 Obtain Past Medical Record [OM.PC] Routine Assessment:: As above Plan: As above. Extensive precautions were given to the patient, who is in agreement with the treatment plan. See Patient Instructions for further treatment and plan.
[2019-02-05] MEDS ORDERED: Sulfamethoxazole/Trimethoprim 800-160 MG Tab PO ONE (22:44)
== END 2019-02-05 23:04 | disposition home or self-care (01) ==
LOC: LL.ED 22:26
DX: L03.031 Cellulitis of right toe (principal); L60.0 Ingrowing nail; K21.9 Gastro-esophageal reflux disease without esophagitis; J45.909 Unspecified asthma, uncomplicated; M15.0 Primary generalized (osteo)arthritis; F41.8 Other specified anxiety disorders; E78.5 Hyperlipidemia, unspecified; J44.9 Chronic obstructive pulmonary disease, unspecified; E66.9 Obesity, unspecified; Z68.30 Body mass index [BMI] 30.0-30.9, adult; Z87.891 Personal history of nicotine dependence; Z88.0 Allergy status to penicillin; Z91.018 Allergy to other foods
CPT/HCPCS: 99283; A9270

== ENCOUNTER 2019-03-11 12:57 | Emergency (ER) | payer BC, OTHER ==
[2019-03-11] MEDS ORDERED: Famotidine 20 MG/2 ML SDV IVPUSH ONE (13:13)
[2019-03-11] MEDS ORDERED: Ondansetron 4 MG/2 ML SDV IVPUSH ONE (13:13)
[2019-03-11] MEDS ORDERED: Lactated Ringers 1,000 ML IV ONE (13:13)
[2019-03-11] MEDS ORDERED: Sodium Chloride 0.9% 10 ML Syringe FLUSH PRN (13:13)
[2019-03-11] MEDS ORDERED: Pantoprazole 40 MG Vial IVPUSH ONE (13:13)
--- NOTE | 2019-03-11 13:13 | EDM.PDOC ---
ED HPI GENERAL MEDICAL PROBLEM - General Chief Complaint: General Stated Complaint: dehydration Time Seen by Provider: 03/11/19 13:05 Source of Information: Reports: Patient, Old Records ([facility] chart/EMR) History Limitations: Reports: No Limitations - History of Present Illness INITIAL COMMENTS - FREE TEXT/NARRATIVE: The patient was brought to the emergency room via ambulance with cloud administrator accompaniment with patient started on an IV and given 500 mL of normal saline by means of IV bolus prior to arrival to this facility. Note that the patient has had at least 5 episodes of emesis since 5 AM after taken his Halls for his chronic dental pain. The patient was evaluated by his dentist earlier this morning, who referred the patient to this facility for further evaluation. No apparent further recent treatment other than dental x-rays with his dentist not feeling that teeth extractions were warranted at this time. No other change in allergen exposure. The patient is not taking any medications for his symptoms to this point. He denies any known exposure to infection, food poisoning, etc.. No recent history of abdominal pain, heartburn, diarrhea, melena, gross hematochezia, or any food intolerance, including fatty foods, etc. with normal bowel movement earlier this morning. He denies any gross hematuria, colic, or other UTI symptoms. The patient also denies any recent fever, cough, wheezing, dyspnea, etc.. Onset: Today, Sudden Onset Date: 03/11/19 Onset Time: 05:00 Duration: Intermittent Location: Reports: Other (Dental pain) Quality: Reports: Same as Previous Episode Improves with: Reports: None Worsens with: Reports: None Context: Reports: Other (As above). Denies: Sick Contact, Trauma Associated Symptoms: Reports: Nausea/Vomiting. Denies: Confusion, Chest Pain, Cough, Diaphoresis, Fever/Chills, Headaches, Loss of Appetite, Malaise, Rash, Seizure, Shortness of Breath, Syncope Treatments SHEEP SHEARER: Reports: Other Medication(s) (As above) Oral/Mouth Pain Score (Numeric/FACES): 10 (Dental pain as above) - Related Data Allergies Allergy/AdvReac Type Severity Reaction Status Date / Time banana [Banana] Allergy Anaphylactic Verified 03/11/19 13:57 Shock pear [Pear] Allergy Anaphylactic Verified 03/11/19 13:57 Shock Penicillins Allergy Rash and Verified 03/11/19 13:57 hives Home Meds: Home Meds Albuterol Sulfate [Albuterol Sulfate Hfa] 2 puff INH Q4HR PRN 03/11/19 [History] Past Medical History HEENT History: Reports: Impaired Vision. Denies: Allergic Rhinitis, Hard of Hearing, Otitis Media, Retinal Detachment Other HEENT History: Patient currently wears glasses. Cardiovascular History: Reports: Arrhythmia, High Cholesterol, Other (See Below) . Denies: Afib, Blood Clots/VTE/DVT, CAD, Heart Failure, Heart Murmur, Hypertension, Syncope Other Cardiovascular History: Cardiomegaly by chest x-ray, chronic bradycardia of unknown etiology initially diagnosed on 12/04/13 with apparent cardiology consultation at that time, history of dyslipidemia and mild obesity with no current medical therapy. Respiratory History: Reports: Asthma, Bronchitis, Recurrent, COPD, Intubation, Previous, Other (See Below). Denies: Intubation, Difficult, PE, Pneumonia, Recurrent, Pneumothorax, Pulmonary Fibrosis, Sleep Apnea, TB Other Respiratory History: Intubation with cholecystectomy Gastrointestinal History: Reports: Cholelithiasis, Chronic Constipation, Diverticulosis, Gastritis, GERD, Hemorrhoids, Hiatal Hernia, Other (See Below). Denies: Celiac Disease, Chronic Diarrhea, Colon Polyp, Fecal Incontinence, Hepatitis, Inflammatory Bowel Disease, Irritable Bowel Syndrome, Jaundice, Pancreatitis, PUD Other Gastrointestinal History: Small hiatal hernia with peptic reflux disease by upper GI and small bowel series, dysfunctional gallbladder requiring surgery as below, diverticulosis by CT scan, negative workup for suspected Crohn's disease with previous EGD and colonoscopy by patient history Genitourinary History: Reports: None. Denies: Acute Renal Failure, BPH, Chronic Renal Insuffiency, Renal Calculus, STD, Urinary Incontinence, UTI, Recurrent Musculoskeletal History: Reports: Arthritis, Back Pain, Chronic, Fracture, Osteoarthritis, Other (See Below). Denies: Gout, Neck Pain, Chronic, RA, SLE Other Musculoskeletal History: Chip fracture of the distal phalanx of digit #2 of the left foot on 05/07/15 Neurological History: Reports: Headaches, Chronic, Migraines. Denies: Cerebral Aneurysms, Concussion, CVA, Head Trauma, MS, Neuropathy, Peripheral, Parkinson's , Seizure, TIA Psychiatric History: Reports: Addiction, Anxiety, Depression, Other (See Below) . Denies: Abuse, Victim of, ADD, ADHD, Psych Hospitalization(s), Suicide Attempt, Suicidal Ideation Other Psychiatric History: Tobacco and marijuana use as below Endocrine/Metabolic History: Reports: Obesity/BMI 30+. Denies: Diabetes, Type I , Diabetes, Type II, Diabetes Mellitus, Type 3c, Hypothyroidism, IDDM Hematologic History: Reports: None. Denies: Anemia, Blood Transfusion(s), Iron Deficiency Immunologic History: Reports: None. Denies: AIDS, HIV, SLE Oncologic (Cancer) History: Reports: None. Denies: Basal Cell Carcinoma, Hodgkin's Lymphoma, Leukemia, Lymphoma, Malignant Melanoma, Non-Hodgkin's Lymphoma, Squamous Cell Carcinoma Dermatologic History: Reports: Cellulitis, Other (See Below). Denies: Eczema, Psoriasis Other Dermatologic History: Recurrent ingrown toenails. - Infectious Disease History Infectious Disease History: Reports: Chicken Pox. Denies: C-Difficile, Measles , Meningitis, Mononucleosis, MRSA, Mumps, Pertussis (Whooping Cough), Rheumatic Fever, Rubella, Scarlet Fever, Shingles, TB, VRE - Past Surgical History Head Surgeries/Procedures: Reports: None HEENT Surgical History: Reports: Adenoidectomy, Oral Surgery, Tonsillectomy, Other (See Below). Denies: Eye Surgery, Laser Surgery, LASIK, Myringotomy w Tube(s), Naso-Sinus Surgery Other HEENT Surgeries/Procedures: [place] teeth extraction 4 at age 14 with additional subsequent tooth extractions. Tonsillectomy and adenoidectomy at age 1. Cardiovascular Surgical History: Reports: None. Denies: Varicose Respiratory Surgical History: Reports: None. Denies: Thoracentesis GI Surgical History: Reports: Cholecystectomy, Colonoscopy, EGD, Hernia, Abdominal, Other (See Below). Denies: Appendectomy, Hernia, Inguinal, Hernia Repair/Other, Polypectomy Other GI Surgeries/Procedures: Laparoscopic cholecystectomy with concomitant umbilical hernia repair in May 2013. EGD and colonoscopy in about September 2014 by patient history. Male Surgical History: Reports: Circumcision, Other (See Below). Denies: Vasectomy Other Male Surgeries/Procedures: Circumcision as an infant. Bilateral testicular torsion reversal in 2000. Endocrine Surgical History: Reports: None Neurological Surgical History: Reports: None. Denies: C-Spine, Discectomy, Laminectomy, Lumbar Spine, Sacral Spine, Spinal Fusion, Thoracic Spine, Vertebroplasty Musculoskeletal Surgical History: Reports: None. Denies: Arthroscopic Procedure , Carpal Tunnel, Ganglion Cyst, Joint Replacement, ORIF, Shoulder Surgery Oncologic Surgical History: Reports: None Dermatological Surgical History: Reports: None - Past Imaging History Past Imaging History: Reports: Angiography (Negative heart catheterization on at [facility] by patient history.), CAT Scan (CT scan of the head on 06/02/16 [address] 01/31/15. CT of the abdomen and pelvis on 04/24/16 with previous evaluations on 06/25/14 and 05/14/13.), Upper GI X-Ray/Series (08/05/14.) Social & Family History - Family History Family Medical History: Noncontributory Cardiac: Reports: Hypertension, Other (See Below) Other Cardiac Family History: Hypertension in mother Endocrine/Metabolic: Reports: Diabetes, type II, IDDM, Other (See Below) Other Endocrine/Metabolic Family History: IDDM in mother Oncologic: Reports: Other (See Below) Other Oncologic Family History: Maternal aunt with unknown type of cancer - Tobacco Use Smoking Status *Q: Former Smoker Tobacco Use Within Last Twelve Months: No Years of Tobacco use: 20 Packs/Tins Daily: 0.1 Packs/Tins Daily Comment: The patient discontinued cigarette use in March 2013 with 2 cigars per day thereafter but no tobacco use since May 2018. Used Tobacco, but Quit: Yes Smoking Cessation Information Provided To Patient: No Second Hand Smoke Exposure: No Second Hand Smoke Education Provided: No - Caffeine Use Caffeine Use: Reports: Tea (Four glasses per day). Denies: Coffee, Energy Drinks, Soda Caffeine Use Comment: 6 sodas per day - Alcohol Use Alcohol Use History: Yes Days Per Week of Alcohol Use: 0 Number of Drinks Per Day: 1 Number of Drinks Per Day Comment: Usually mixed drinks for holidays, etc. No previous DWIs, problems with alcohol abuse, etc. Total Drinks Per Week: 0 Alcohol Use in Last Twelve Months: Yes Alcohol Use Frequency: Rarely - Recreational Drug Use Recreational Drug Use: Yes Drug Use in Last 12 Months: No Recreational Drug Type: Reports: Marijuana/Hashish (Started marijuana use at age 17 with previous use of about 3 joints per day however discontinuation in September 2018.). Denies: Amphetamines (Speed), Cocaine, Heroin, Inhalants (Glues , Solvents, Aerosols), LSD (Acid), Methamphetamine, Morphine, Oxycodone - Sexual History Sexual History: Reports: Single Partner - Living Situation & Occupation Living situation: Reports: (2010, 4 children), with Family Occupation: Employed ([employer]. 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 ED EXAM, GENERAL - Physical Exam Exam: See Below Exam Limited By: No Limitations General Appearance: Alert, WD/WN, No Apparent Distress, Anxious (Moderate) Eye Exam: Bilateral Eye: Normal Inspection (No nystagmus. Patient wears glasses. ), PERRL Ears: Normal External Exam, Normal Canal, Hearing Grossly Normal, Normal TMs Nose: Normal Inspection, Normal Mucosa, No Blood Throat/Mouth: Normal Inspection, Normal Lips, Normal Teeth (Multiple missing teeth with no evidence of acute dental infection), Normal Gums, Normal Oropharynx, Normal Voice, No Airway Compromise. No: Dysphagia, Perioral Cyanosis Head: Atraumatic, Normocephalic, Other (Mild facial petechiae, which always occur when he has emesis.). No: Facial Swelling, Facial Tenderness, Sinus Tenderness Neck: Normal Inspection, Supple, Non-Tender, Full Range of Motion. No: Lymphadenopathy (L), Lymphadenopathy (R), Thyromegaly Respiratory/Chest: No Respiratory Distress, Lungs Clear, Normal Breath Sounds, No Accessory Muscle Use, Chest Non-Tender. No: Pleural Rub, Retractions Cardiovascular: Normal Peripheral Pulses, Regular Rate, Rhythm, No Edema, No Gallop, No JVD, No Murmur, No Rub. No: Gallop/S3, Gallop/S4, Friction Rub Peripheral Pulses: 2+: Radial (L), Radial (R) GI/Abdominal: Normal Bowel Sounds, Soft, Non-Tender, No Organomegaly, No Distention, No Abnormal Bruit, No Mass, Pelvis Stable, Other (Obese). No: Guarding (Male) Exam: Deferred Rectal (Males) Exam: Deferred Back Exam: Normal Inspection, Full Range of Motion. No: CVA Tenderness (L), CVA Tenderness (R), Muscle Spasm Extremities: Normal Inspection, Normal Range of Motion, Non-Tender, No Pedal Edema, Normal Capillary Refill. No: Alok's Sign Neurological: Alert, Oriented, CN II-XII Intact, Normal Cognition, Normal Gait, No Motor/Sensory Deficits Psychiatric: Anxious (Moderate), Depressed Mood (Moderate with adequate eye contact) Skin Exam: Warm, Dry, Intact, Normal Color, No Rash, Petechiae (Facial as above) . No: Diaphoretic, Ecchymosis, Jaundice, Pallor, Wound/Incision Lymphatic: No Adenopathy Course - Vital Signs Last Recorded V/S: Last Vital Signs Temp 37.1 C 03/11/19 12:57 Pulse 58 L 03/11/19 14:52 Resp 16 03/11/19 14:52 BP 123/79 03/11/19 14:52 Pulse Ox 99 03/11/19 14:52 Vital Signs - 24 hr 03/11/19 03/11/19 03/11/19 12:57 13:12 13:52 Temperature [ 37.1 C Oral] Pulse, 65 60 60 Peripheral [ Left Pulse Oximetry] Respiratory 16 16 16 Rate Blood Pressure 108/65 114/84 130/70 [Right Upper Arm] O2 Sat by Pulse 100 100 99 Oximetry 03/11/19 03/11/19 14:22 14:52 Temperature [ Oral] Pulse, 59 L 58 L Peripheral [ Left Pulse Oximetry] Respiratory 15 16 Rate Blood Pressure 119/62 123/79 [Right Upper Arm] O2 Sat by Pulse 99 99 Oximetry - Orders/Labs/Meds Orders: Active Orders 24 hr Category Date Time Status Peripheral IV Care [RC] . DIRECTED Care 03/11/19 13:14 Active Abdomen Series w Chest 1V [CR] Stat Exams 03/11/19 13:14 Taken Obtain Past Medical Record [OM.PC] Urgent Oth 03/11/19 13:14 Active Peripheral IV Insertion Adult [OM.PC] Stat Oth 03/11/19 13:14 Ordered Resuscitation Status Stat Resus Stat 03/11/19 13:13 Ordered Labs: Laboratory Tests 03/11/19 03/11/19 03/11/19 Range/Units 13:45 13:45 13:45 WBC 12.4 H (4.0-10.2) K/uL RBC 5.21 (4.33-5.41) M/uL Hgb 15.7 (13.1-16.8) g/dL Hct 44.6 (39.0-49.0) % MCV 85.6 (84.0-98.0) fL MCH 30.1 (28.2-33.3) pg MCHC 35.2 (31.7-36.0) g/dL RDW 12.5 (11.2-14.1) % Plt Count 271 (150-350) K/uL Neut % (Auto) 76.1 (45.0-80.0) % Lymph % (Auto) 15.6 (10.0-50.0) % [place] % (Auto) 7.7 (2.0-14.0) % Eos % (Auto) 0.4 (0.0-5.0) % Baso % (Auto) 0.2 (0.0-2.0) % Neut # (Auto) 9.43 H (1.40-7.00) K/uL Lymph # (Auto) 1.94 (0.50-3.50) K/uL [place] # (Auto) 0.96 (0.00-1.00) K/uL Eos # (Auto) 0.05 (0.00-0.50) K/uL Baso # (Auto) 0.03 (0.00-0.20) K/uL PT 10.3 (9.5-12.0) SEC INR 1.0 APTT 27.5 (21.0-31.3) SEC Sodium 139 (136-145) mmol/L Potassium 3.6 (3.5-5.1) mmol/L Chloride 103 (98-107) mmol/L Carbon Dioxide 21.5 (21.0-32.0) mmol/L BUN 17 (7-18) mg/dL Creatinine 0.67 (0.51-1.17) mg/dL Est Cr Clr Drug Dosing TNP Estimated GFR (MDRD) > 60 mL/min Glucose 98 (74-106) mg/dL Lactic Acid (0.4-2.0) mmol/L Uric Acid 4.6 (2.6-7.2) mg/dL Calcium 8.6 (8.5-10.1) mg/dL Magnesium 1.5 L (1.8-2.4) mg/dL Total Bilirubin 0.6 (0.2-1.0) mg/dL AST 24 (15-37) U/L ALT 44 (12-78) U/L Alkaline Phosphatase 80 (46-116) IU/L Total Protein 7.4 (6.4-8.2) g/dL Albumin 4.1 (3.4-5.0) g/dL Amylase 74 (25-115) U/L Lipase 114 (73-393) U/L 03/11/19 Range/Units 13:45 WBC (4.0-10.2) K/uL RBC (4.33-5.41) M/uL Hgb (13.1-16.8) g/dL Hct (39.0-49.0) % MCV (84.0-98.0) fL MCH (28.2-33.3) pg MCHC (31.7-36.0) g/dL RDW (11.2-14.1) % Plt Count (150-350) K/uL Neut % (Auto) (45.0-80.0) % Lymph % (Auto) (10.0-50.0) % [place] % (Auto) (2.0-14.0) % Eos % (Auto) (0.0-5.0) % Baso % (Auto) (0.0-2.0) % Neut # (Auto) (1.40-7.00) K/uL Lymph # (Auto) (0.50-3.50) K/uL [place] # (Auto) (0.00-1.00) K/uL Eos # (Auto) (0.00-0.50) K/uL Baso # (Auto) (0.00-0.20) K/uL PT (9.5-12.0) SEC INR APTT (21.0-31.3) SEC Sodium (136-145) mmol/L Potassium (3.5-5.1) mmol/L Chloride (98-107) mmol/L Carbon Dioxide (21.0-32.0) mmol/L BUN (7-18) mg/dL Creatinine (0.51-1.17) mg/dL Est Cr Clr Drug Dosing Estimated GFR (MDRD) mL/min Glucose (74-106) mg/dL Lactic Acid 1.5 (0.4-2.0) mmol/L Uric Acid (2.6-7.2) mg/dL Calcium (8.5-10.1) mg/dL Magnesium (1.8-2.4) mg/dL Total Bilirubin (0.2-1.0) mg/dL AST (15-37) U/L ALT (12-78) U/L Alkaline Phosphatase (46-116) IU/L Total Protein (6.4-8.2) g/dL Albumin (3.4-5.0) g/dL Amylase (25-115) U/L Lipase (73-393) U/L Meds: Medications Discontinued Medications Generic Name Dose Route Start Last Admin Trade Name Freq PRN Reason Stop Dose Admin Famotidine 40 mg 03/11/19 13:13 03/11/19 13:52 Pepcid IVPUSH 03/11/19 13:14 40 mg ONETIME ONE Administration Lactated Ringer's 1,000 mls @ 999 mls/hr 03/11/19 13:13 03/11/19 13:52 Ringers, Lactated IV 03/11/19 14:13 999 mls/hr .BOLUS ONE Administration Ketorolac Tromethamine 30 mg 03/11/19 13:15 03/11/19 13:47 Toradol IVPUSH 03/11/19 13:16 30 mg ONETIME ONE Administration Ondansetron HCl 4 mg 03/11/19 13:13 03/11/19 13:43 Zofran IVPUSH 03/11/19 13:14 4 mg ONETIME ONE Administration Pantoprazole Sodium 40 mg 03/11/19 13:13 03/11/19 13:42 Protonix Iv IVPUSH 03/11/19 13:14 40 mg ONETIME ONE Administration Sodium Chloride 10 ml 03/11/19 13:13 Saline Flush FLUSH ASDIRECTED PRN Keep Vein Open - Radiology Interpretation Free Text/Narrative:: Acute abdominal x-rays shows somewhat poor inspiratory film with borderline pulmonary obstructive disease and cardiomegaly, however this may be artifactual. Mildly elevated right hemidiaphragm with no pulmonary infiltrates or CHF. Mildly increased diffuse nonspecific bowel gaseous pattern with no free air, fluid levels, ileus, obstruction, etc. Note surgical clips in right upper quadrant consistent with cholecystectomy. Departure - Departure Time of Disposition: 15:00 Disposition: Home, Self-Care 01 Condition: Good Clinical Impression: Dyslipidemia, Mixed anxiety and depressive disorder, Peptic reflux disease, Hypomagnesemia, Asthma Nausea and vomiting Qualifiers: Vomiting type: unspecified Vomiting Intractability: non-intractable Qualified Code(s): R11.2 - Nausea with vomiting, unspecified Osteoarthritis Qualifiers: Osteoarthritis location: multiple joints Osteoarthritis type: primary Qualified Code(s): M15.0 - Primary generalized (osteo)arthritis - Discharge Information *PRESCRIPTION DRUG MONITORING PROGRAM REVIEWED*: Not Applicable *COPY OF PRESCRIPTION DRUG MONITORING REPORT IN PATIENT DRAKE: Not Applicable Instructions: Nausea, Adult, [id number] Referrals: Nathan Faulkner MD [Emergency Provider] - Forms: ED Department Discharge, ED Return to Work/School Form Additional Instructions: 1. Follow up with your regular provider in 7 days for reevaluation and recommended repeat CBC and magnesium level. Bring these discharge instructions with you to that visit.. 2. Tylenol 650 mg by mouth every 4 hours and/or OTC ibuprofen 2-3 tabs by mouth every 6 hours with food as directed./needed. You may stagger these medications for 48-72 hours only, which essentially means that you are receiving a pain medication about every 2 hours. Next dose of ibuprofen in 6 hours as needed secondary to medications given in the emergency room 3. [place] diet including encouragement of oral fluids such as sports drinks, etc. for 24-48 hours as directed. Advance to previous heart healthy diet as tolerated thereafter. 4. Work excuse- See Form 5. Immediately after this visit verify that your cellular telephone's voicemail has been activated and is empty. Also verify that your home telephone 's answering machine is operating properly and has space to receive messages. Note that it is sometimes necessary for us to be able to contact you at a later date to discuss your medical care. 6. Please remember that we are ALWAYS here for you and want to answer any questions you may have. Feel free to call the hospital any time and we call you back HARPRE[place]. 7. Add allergy/intolerance to all narcotic medications secondary to your nausea and emesis from recent Halls. Your regular providers, dentist, etc. should be notified of this new allergy. Sepsis Event Note - Focused Exam Vital Signs: Vital Signs Temp Pulse Resp BP Pulse Ox 03/11/19 14:52 58 L 16 123/79 99 03/11/19 14:22 59 L 15 119/62 99 03/11/19 13:52 60 16 130/70 99 03/11/19 13:12 60 16 114/84 100 03/11/19 12:57 37.1 C 65 16 108/65 100 Date Exam was Performed: 03/11/19 Time Exam was Performed: 22:27 - Problem List & Annotations (1) Nausea and vomiting SNOMED Code(s): 73669928 Code(s): R11.2 - NAUSEA WITH VOMITING, UNSPECIFIED Status: Acute Priority : High Onset Date: 03/11/19 Annotation/Comment:: Patient is intolerant to narcotic medications with significant reaction to his Halls earlier this morning as above. He agrees to notify his regular providers, dentist, etc. about his intolerance to these medications. Mild leukocytosis likely secondary to stress reaction with no fever or evidence of acute infection. Observe for now. Close follow-up by regular provider. Work excuse provided. Note that official x-ray report received after the patient left the emergency room showed borderline possible mild ileus however patient clinically improved prior to discharge. Qualifiers: Vomiting type: unspecified Vomiting Intractability: non-intractable Qualified Code(s): R11.2 - Nausea with vomiting, unspecified (2) Asthma SNOMED Code(s): 989222522 Code(s): J45.909 - UNSPECIFIED ASTHMA, UNCOMPLICATED Status: Chronic Priority: Medium Annotation/Comment:: No recent fever or bronchitic type symptoms. Patient does have inhalers at home, however is not needing this medication currently. He was congratulated about his previous discontinuation of tobacco and marijuana. He may still benefit from PFTs based on previous chest x-ray findings. (3) Peptic reflux disease SNOMED Code(s): 866582464 Code(s): K21.9 - GASTRO-ESOPHAGEAL REFLUX DISEASE WITHOUT ESOPHAGITIS Status: Chronic Priority: Medium Annotation/Comment:: Currently nonsymptomatic with no medical therapy required. Negative workup for Crohn's disease in the past as above. (4) Mixed anxiety and depressive disorder SNOMED Code(s): 392887684 Code(s): F41.8 - OTHER SPECIFIED ANXIETY DISORDERS Status: Acute Priority : Medium Annotation/Comment:: Stable by history with no current medical therapy. Moderate control based on today's exam. Continue to observe closely by his regular provider. (5) Dyslipidemia SNOMED Code(s): 023081701 Code(s): E78.5 - HYPERLIPIDEMIA, UNSPECIFIED Status: Acute Priority: Medium Onset Date: 11/25/13 Annotation/Comment:: Note previous history of dyslipidemia with no current medical therapy. The patient would still benefit from a strict low-fat, low-cholesterol diet and weight loss in moderation with persistent obesity. (6) Hypomagnesemia SNOMED Code(s): 457440416 Code(s): E83.42 - HYPOMAGNESEMIA Status: Acute Priority: Medium Onset Date: 03/11/19 Annotation/Comment:: Observe for now. Likely secondary to his emesis today as above. Close follow-up by his regular provider with consideration of supplementation depending on his clinical course. - Problem List Review Problem List Initiated/Reviewed/Updated: Yes - My Orders Last 24 Hours: My Active Orders 03/11/19 13:13 Resuscitation Status Stat 03/11/19 13:14 Peripheral IV Care [RC] . DIRECTED Abdomen Series w Chest 1V [CR] Stat Obtain Past Medical Record [OM.PC] Urgent Peripheral IV Insertion Adult [OM.PC] Stat - Assessment/Plan Last 24 Hours: My Active Orders 03/11/19 13:13 Resuscitation Status Stat 03/11/19 13:14 Peripheral IV Care [RC] . DIRECTED Abdomen Series w Chest 1V [CR] Stat Obtain Past Medical Record [OM.PC] Urgent Peripheral IV Insertion Adult [OM.PC] Stat Assessment:: As above Plan: As above. Extensive precautions were given to the patient, who is in agreement with the treatment plan. See Patient Instructions for further treatment and plan.
[2019-03-11] MEDS ORDERED: Ketorolac 30 MG/ML SDV IVPUSH ONE (13:15)
[2019-03-11 14:07] LABS: CHLORIDE,CL 103 mmol/L (98-107); SODIUM,NA 139 mmol/L (136-145)
[2019-03-11 15:14] VITALS: BP 123/79; PULSE 58
== END 2019-03-11 15:00 | disposition home or self-care (01) ==
LOC: LL.ED 12:57
DX: R11.2 Nausea with vomiting, unspecified (principal); K21.9 Gastro-esophageal reflux disease without esophagitis; E78.5 Hyperlipidemia, unspecified; F41.8 Other specified anxiety disorders; J44.9 Chronic obstructive pulmonary disease, unspecified; E83.42 Hypomagnesemia; M15.0 Primary generalized (osteo)arthritis; Z87.891 Personal history of nicotine dependence; Z88.0 Allergy status to penicillin; Z91.018 Allergy to other foods
CPT/HCPCS: 36415; 74022; 80053; 82150; 83605; 83690; 83735; 84550; 85025; 85610; 85730; 96361; 96374; 96375; 99284-25; C9113; J1885; J2405; J3490; J7120

== ENCOUNTER 2020-03-10 17:23 | Emergency (ER) | payer BC, OTHER ==
[2020-03-10 17:29] VITALS: BP 124/75; PULSE 56
--- NOTE | 2020-03-10 17:31 | EDM.PDOC ---
ED HPI GENERAL MEDICAL PROBLEM - General Chief Complaint: Skin Complaint Stated Complaint: bilateral wrist rashes Time Seen by Provider: 03/10/20 17:25 Source of Information: Reports: Patient, Old Records (Records complete) History Limitations: Reports: No Limitations - History of Present Illness INITIAL COMMENTS - FREE TEXT/NARRATIVE: The patient drove himself to the emergency room via private automobile for evaluation of a 2-day history of a 4/10 burning bilateral hand and wrist rash, which occurred about 2 days ago. Symptoms have been refractory to OTC calamine lotion. He denies any known exposure to allergens, changes in medical therapy, etc. The patient also denies any recent fever, cough, wheezing, dyspnea, etc.. No recent history of abdominal pain, heartburn, nausea, diarrhea, melena, gross hematochezia, or any food intolerance, including fatty foods, etc.. Onset: Gradual Onset Date: 03/08/20 Duration: Getting Worse. No: Resolved Prior to Arrival Location: Reports: Upper Extremity, Left, Upper Extremity, Right. Denies: Head, Neck, Chest, Abdomen, Back, Radiates to Quality: Reports: Same as Previous Episode, Other (Burning) Severity: Mild Improves with: Reports: None Worsens with: Reports: None Context: Reports: Other (As above). Denies: Sick Contact, Trauma Associated Symptoms: Reports: Rash. 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) (As above) Bilateral Wrist Pain Score (Numeric/FACES): 4 - Related Data Allergies Allergy/AdvReac Type Severity Reaction Status Date / Time banana [Banana] Allergy Anaphylactic Verified 03/10/20 17:24 Shock pear [Pear] Allergy Anaphylactic Verified 03/10/20 17:24 Shock Penicillins Allergy Rash and Verified 03/10/20 17:24 hives Home Meds: Home Meds Albuterol Sulfate [Albuterol Sulfate Hfa] 2 puff INH Q4HR PRN 03/11/19 [History] Fexofenadine [Huong] 30 mg PO DAILY 03/10/20 [History] Hydrocortisone [Hydrocortisone 1% Crm] 1 gm TOP BID #1 tube 03/10/20 [Rx] Past Medical History HEENT History: Reports: Allergic Rhinitis, Impaired Vision. Denies: Hard of Hearing, Otitis Media, Retinal Detachment Other HEENT History: Patient currently wears glasses. Cardiovascular History: Reports: Arrhythmia, High Cholesterol, Other (See Below). Denies: Afib, Blood Clots/VTE/DVT, CAD, Heart Failure, Heart Murmur, Hypertension, Syncope Other Cardiovascular History: Cardiomegaly by chest x-ray, chronic bradycardia of unknown etiology initially diagnosed on 12/04/13 with apparent cardiology consultation at that time, history of dyslipidemia and mild obesity with no current medical therapy. Respiratory History: Reports: Asthma, Bronchitis, Recurrent, COPD, Intubation, Previous, Other (See Below). Denies: Intubation, Difficult, PE, Pneumonia, Recurrent, Pneumothorax, Pulmonary Fibrosis, Sleep Apnea, TB Other Respiratory History: Intubation with cholecystectomy Gastrointestinal History: Reports: Cholelithiasis, Chronic Constipation, Diverticulosis, Gastritis, GERD, Hemorrhoids, Hiatal Hernia, Other (See Below). Denies: Celiac Disease, Chronic Diarrhea, Colon Polyp, Fecal Incontinence, Hepatitis, Inflammatory Bowel Disease, Irritable Bowel Syndrome, Jaundice, Pancreatitis, PUD Other Gastrointestinal History: Small hiatal hernia with peptic reflux disease by upper GI and small bowel series, dysfunctional gallbladder requiring surgery as below, diverticulosis by CT scan, negative workup for suspected Crohn's disease with previous EGD and colonoscopy by patient history Genitourinary History: Reports: None. Denies: Acute Renal Failure, BPH, Chronic Renal Insuffiency, Renal Calculus, STD, Urinary Incontinence, UTI, Recurrent Musculoskeletal History: Reports: Arthritis, Back Pain, Chronic, Fracture, Osteoarthritis, Other (See Below). Denies: Gout, Neck Pain, Chronic, RA, SLE Other Musculoskeletal History: Chip fracture of the distal phalanx of digit #2 of the left foot on 05/07/15 Neurological History: Reports: Headaches, Chronic, Migraines. Denies: Cerebral Aneurysms, Concussion, CVA, Head Trauma, MS, Neuropathy, Peripheral, Parkinson's, Seizure, TIA Psychiatric History: Reports: Addiction, Anxiety, Depression, Other (See Below). Denies: Abuse, Victim of, ADD, ADHD, Psych Hospitalization(s), Suicide Attempt, Suicidal Ideation Other Psychiatric History: Tobacco and marijuana use as below Endocrine/Metabolic History: Reports: Obesity/BMI 30+. Denies: Diabetes, Type I, Diabetes, Type II, Diabetes Mellitus, Type 3c, Hypothyroidism, IDDM Hematologic History: Reports: None. Denies: Anemia, Blood Transfusion(s), Iron Deficiency Immunologic History: Reports: None. Denies: AIDS, HIV, SLE Oncologic (Cancer) History: Reports: None. Denies: Basal Cell Carcinoma, Hodgkin's Lymphoma, Leukemia, Lymphoma, Malignant Melanoma, Non-Hodgkin's Lymphoma, Squamous Cell Carcinoma Dermatologic History: Reports: Cellulitis, Other (See Below). Denies: Eczema, Psoriasis Other Dermatologic History: Recurrent ingrown toenails. - Infectious Disease History Infectious Disease History: Reports: Chicken Pox. Denies: C-Difficile, Measles, Meningitis, Mononucleosis, MRSA, Mumps, Novel Coronavirus, Pertussis (Whooping Cough), Rheumatic Fever, Rubella, Scarlet Fever, Shingles, TB, VRE - Past Surgical History Head Surgeries/Procedures: Reports: None HEENT Surgical History: Reports: Adenoidectomy, Oral Surgery, Tonsillectomy, Other (See Below). Denies: Eye Surgery, Laser Surgery, LASIK, Myringotomy w Tube(s), Naso-Sinus Surgery Other HEENT Surgeries/Procedures: [place] teeth extraction 4 at age 14 with additional subsequent tooth extractions. Tonsillectomy and adenoidectomy at age 1. Cardiovascular Surgical History: Reports: None. Denies: Varicose Respiratory Surgical History: Reports: None. Denies: Thoracentesis GI Surgical History: Reports: Cholecystectomy, Colonoscopy, EGD, Hernia, Abdominal, Other (See Below). Denies: Appendectomy, Hernia, Inguinal, Hernia Repair/Other, Polypectomy Other GI Surgeries/Procedures: Laparoscopic cholecystectomy with concomitant umbilical hernia repair in May 2013. EGD and colonoscopy in about September 2014 by patient history. Male Surgical History: Reports: Circumcision, Other (See Below). Denies: Vasectomy Other Male Surgeries/Procedures: Circumcision as an . Bilateral testicular torsion reversal in 2000. Endocrine Surgical History: Reports: None. Denies: Thyroid Biopsy Neurological Surgical History: Reports: None. Denies: C-Spine, Discectomy, Laminectomy, Lumbar Spine, Sacral Spine, Spinal Fusion, Thoracic Spine, Vertebroplasty Musculoskeletal Surgical History: Reports: None. Denies: Arthroscopic Procedure, Carpal Tunnel, Ganglion Cyst, Joint Replacement, ORIF, Shoulder Surgery Oncologic Surgical History: Reports: None Dermatological Surgical History: Reports: None - Past Imaging History Past Imaging History: Reports: Angiography (Negative heart catheterization on 11/26/13 at [facility] by patient history.), CAT Scan (CT scan of the head on 06/02/16 and 01/31/15. CT of the abdomen and pelvis on 04/24/16 with previous evaluations on 06/25/14 and 05/14/13.), Upper GI X-Ray/Series (08/05/14.) Social & Family History - Family History Family Medical History: No Pertinent Family History Cardiac: Reports: Hypertension, Other (See Below) Other Cardiac Family History: Hypertension in mother Endocrine/Metabolic: Reports: Diabetes, type II, IDDM, Other (See Below) Other Endocrine/Metabolic Family History: IDDM in mother Oncologic: Reports: Other (See Below) Other Oncologic Family History: Maternal aunt with unknown type of cancer - Tobacco Use Tobacco Use Status *Q: Former Tobacco User Tobacco Use Within Last Twelve Months: No Years of Tobacco use: 20 Packs/Tins Daily: 0.1 Packs/Tins Daily Comment: Discontinued cigarette use in March 2013 with 2 cigars/day briefly thereafter but no use since May 2018. Used Tobacco, but Quit: Yes Smoking Cessation Information Provided To Patient: No Second Hand Smoke Exposure: No Second Hand Smoke Education Provided: No - Caffeine Use Caffeine Use: Reports: Soda (6 sodas per day), Tea (Four glasses per day). Denies: Coffee, Energy Drinks - Alcohol Use Alcohol Use History: Yes Days Per Week of Alcohol Use: 0 Number of Drinks Per Day: 1 Number of Drinks Per Day Comment: No previous DWIs, problems with alcohol abuse, etc.. Usually mixed drinks for holidays. Total Drinks Per Week: 0 Alcohol Use in Last Twelve Months: Yes Alcohol Use Frequency: Rarely - Recreational Drug Use Recreational Drug Use: Yes Drug Use in Last 12 Months: No Recreational Drug Type: Reports: Marijuana/Hashish (Started marijuana use at about age 17 with previous use of about 3 joints per day prior to discontinuation in September 2018.). Denies: Amphetamines (Speed), Cocaine, Heroin, Inhalants (Glues, Solvents, Aerosols), LSD (Acid), Methamphetamine, Morphine, Oxycodone - Sexual History Sexual History: Reports: Single Partner - Living Situation & Occupation Living situation: Reports: (2010, 4 children), with Family Occupation: Employed ([employer]. 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 ED EXAM, SKIN/RASH Exam: See Below Exam Limited By: No Limitations General Appearance: Alert, WD/WN, No Apparent Distress Head: Atraumatic, Normocephalic. No: Facial Swelling, Facial Tenderness, Sinus Tenderness Neck: Normal Inspection, Supple, Non-Tender, Full Range of Motion. No: Lymphadenopathy (L), Lymphadenopathy (R), Thyromegaly Respiratory/Chest: No Respiratory Distress, Lungs Clear, Normal Breath Sounds, No Accessory Muscle Use, Chest Non-Tender. No: Pleural Rub, Retractions Cardiovascular: Normal Peripheral Pulses, Regular Rate, Rhythm, No Edema, No Gallop, No JVD, No Murmur, No Rub. No: Gallop/S3, Gallop/S4, Friction Rub Peripheral Pulses: 2+: Radial (L), Radial (R) GI/Abdominal: Normal Bowel Sounds, Soft, Non-Tender, No Organomegaly, No Distention, No Abnormal Bruit, No Mass, Other (Obese). No: Guarding (Male) Exam: Deferred Rectal (Males) Exam: Deferred Back Exam: Normal Inspection, Full Range of Motion. No: CVA Tenderness (L), CVA Tenderness (R), Muscle Spasm Extremities: Normal Range of Motion, No Pedal Edema, Normal Capillary Refill, Redness (Moderate dry skin, +1 erythema and minimal inflammation over the ventral and dorsal surfaces of the hands and wrists bilaterally exactly in the area where he wears his work gloves. No lymphangitis or local signs of infection.). No: Non-Tender (Mild tenderness at rash site), Alok's Sign, Increased Warmth Neurological: Alert, Oriented, CN II-XII Intact, Normal Cognition, Normal Gait, Normal Reflexes, No Motor/Sensory Deficits Psychiatric: Normal Affect, Normal Mood Skin: Erythema, Rash (As above), Other (No angioedema). No: Diaphoretic, Ecchymosis, Excoriations, Lymphangitis, Wound/Incision Location, Skin: Upper Extremity, Right, Upper Extremity, Left. No: Head, Face, Neck, Chest, Abdomen, Back Characteristics: Other (As above) Associated features: Tenderness. No: Warmth Lymphatic: No Adenopathy Course - Vital Signs Last Recorded V/S: Last Vital Signs Temp 36.4 C 03/10/20 17:27 Pulse 56 L 03/10/20 17:27 Resp 16 03/10/20 17:27 BP 124/75 03/10/20 17:27 Pulse Ox 98 03/10/20 17:27 Vital Signs - 24 hr 03/10/20 17:27 Temperature [ 36.4 C Oral] Pulse, 56 L Peripheral [ Left Pulse Oximetry] Respiratory 16 Rate Blood Pressure 124/75 [Left Upper Arm ] O2 Sat by Pulse 98 Oximetry - Orders/Labs/Meds Orders: Active Orders 24 hr Category Date Time Status Obtain Past Medical Record [OM.PC] Routine Oth 03/10/20 17:32 Active Labs: None Meds: Medications Discontinued Medications Generic Name Dose Route Start Last Admin Trade Name Rosalioq PRN Reason Stop Dose Admin Methylprednisolone Acetate 80 mg 03/10/20 17:32 03/10/20 17:37 Depo-Medrol IM 03/10/20 17:33 80 mg ONETIME ONE Administration - Radiology Interpretation Free Text/Narrative:: None Departure - Departure Time of Disposition: 17:46 Disposition: Home, Self-Care 01 Condition: Good Clinical Impression: Mixed anxiety and depressive disorder, Asthma Contact dermatitis Qualifiers: Contact dermatitis type: irritant Contact dermatitis trigger: other trigger Qualified Code(s): L24.89 - Irritant contact dermatitis due to other agents Osteoarthritis Qualifiers: Osteoarthritis location: multiple joints Osteoarthritis type: primary Qualified Code(s): M15.0 - Primary generalized (osteo)arthritis - Discharge Information *PRESCRIPTION DRUG MONITORING PROGRAM REVIEWED*: Not Applicable *COPY OF PRESCRIPTION DRUG MONITORING REPORT IN PATIENT DRAKE: Not Applicable Prescriptions: Hydrocortisone [Hydrocortisone 1% Crm] 1 gm TOP BID #1 tube Instructions: Contact Dermatitis, [id number] Forms: ED Department Discharge Additional Instructions: 1. Follow up with your regular provider in 10-14 days as needed, if symptoms persist. Bring these discharge instructions with you to that visit.. 2. Discontinue previous Caladryl 3. Cover areas of rash as possible 4. Immediately after this visit verify that your cellular telephone's voicemail has been activated and is empty. Also verify that your home telephone's answering machine is operating properly and has space to receive messages. Note that it is sometimes necessary for us to be able to contact you at a later date to discuss your medical care. 5. Please remember that we are ALWAYS here for you and want to answer any questions you may have. Feel free to call the hospital any time and we call you back HAR[facility]. Sepsis Event Note (ED) - Evaluation Sepsis Screening Result: No Definite Risk - Focused Exam Vital Signs: Vital Signs Temp Pulse Resp BP Pulse Ox 03/10/20 17:27 36.4 C 56 L 16 124/75 98 - Problem List & Annotations (1) Contact dermatitis SNOMED Code(s): 74044725 Code(s): L25.9 - UNSPECIFIED CONTACT DERMATITIS, UNSPECIFIED CAUSE Status: Acute Priority: High Onset Date: ~03/08/20 Annotation/Comment:: The patient already got a new pair of gloves yesterday at work after the rash appeared 2 days ago as above. Discontinue calamine lotion with initiation of OTC 1% hydrocortisone cream. He does not wish to have a work excuse. IM Depo- Medrol given. Qualifiers: Contact dermatitis type: irritant Contact dermatitis trigger: other trigger Qualified Code(s): L24.89 - Irritant contact dermatitis due to other agents; L24.8 - Irritant contact dermatitis due to other agents (2) Mixed anxiety and depressive disorder SNOMED Code(s): 359283073 Code(s): F41.8 - OTHER SPECIFIED ANXIETY DISORDERS Status: Chronic Priority: Medium Annotation/Comment:: Stable by history with no current medical therapy. Continue to observe closely by his regular provider. (3) Osteoarthritis SNOMED Code(s): 013434190 Code(s): M19.90 - UNSPECIFIED OSTEOARTHRITIS, UNSPECIFIED SITE Status: Chronic Priority: Medium Annotation/Comment:: Otherwise stable by patient history. Qualifiers: Osteoarthritis location: multiple joints Osteoarthritis type: primary (4) Asthma SNOMED Code(s): 027472200 Code(s): J45.909 - UNSPECIFIED ASTHMA, UNCOMPLICATED Status: Chronic Priority: Medium Annotation/Comment:: No recent fever or bronchitic type symptoms. - Problem List Review Problem List Initiated/Reviewed/Updated: Yes - My Orders Last 24 Hours: My Active Orders 03/10/20 17:32 Obtain Past Medical Record [OM.PC] Routine - Assessment/Plan Last 24 Hours: My Active Orders 03/10/20 17:32 Obtain Past Medical Record [OM.PC] Routine Assessment:: As above Plan: As above. Extensive precautions were given to the patient, who is in agreement with the treatment plan. See Patient Instructions for further treatment and plan.
[2020-03-10] MEDS ORDERED: methylPREDNISolone Acetate 80 MG/ML SDV IM ONE (17:32)
== END 2020-03-10 17:45 | disposition home or self-care (01) ==
LOC: LL.ED 17:23
DX: L24.89 Irritant contact dermatitis due to other agents (principal); M15.0 Primary generalized (osteo)arthritis; F41.8 Other specified anxiety disorders; J45.909 Unspecified asthma, uncomplicated; Z91.018 Allergy to other foods; Z88.0 Allergy status to penicillin; E66.9 Obesity, unspecified; Z87.891 Personal history of nicotine dependence; Z68.30 Body mass index [BMI] 30.0-30.9, adult; Z79.899 Other long term (current) drug therapy
CPT/HCPCS: 96372; 99282; J1040

== ENCOUNTER 2020-09-24 15:55 | Emergency (ER) | payer BC, OTHER ==
[2020-09-24 15:59] VITALS: BP 120/68; PULSE 67
--- NOTE | 2020-09-24 17:37 | EDM.PDOC ---
ED HPI GENERAL MEDICAL PROBLEM - General Chief Complaint: Lower Extremity Injury/Pain Stated Complaint: Leg Pain Time Seen by Provider: 09/24/20 16:15 Source of Information: Reports: Patient History Limitations: Reports: No Limitations - History of Present Illness INITIAL COMMENTS - FREE TEXT/NARRATIVE: Pt. presents to ER with complaints of discomfort/lesion to scrotum. Pt. states that this developed a couple of days ago. He denies any fever or chills. Pain is located superficial to skin of scrotum. Pt. denies any abdominal pain. No changes to stool or urine. Onset: Today Onset Date: 09/24/20 Location: Reports: Other - Related Data Allergies Allergy/AdvReac Type Severity Reaction Status Date / Time banana [Banana] Allergy Anaphylactic Verified 09/24/20 15:56 Shock pear [Pear] Allergy Anaphylactic Verified 09/24/20 15:56 Shock Penicillins Allergy Rash and Verified 09/24/20 15:56 hives Home Meds: Home Meds Albuterol Sulfate [Albuterol Sulfate Hfa] 2 puff INH Q4HR PRN 03/11/19 [History] Fexofenadine [Huong] 30 mg PO DAILY 03/10/20 [History] Hydrocortisone [Hydrocortisone 1% Crm] 1 gm TOP BID #1 tube 03/10/20 [Rx] Past Medical History HEENT History: Reports: Allergic Rhinitis, Impaired Vision. Denies: Hard of Hearing, Otitis Media, Retinal Detachment Other HEENT History: Patient currently wears glasses. Cardiovascular History: Reports: Arrhythmia, High Cholesterol, Other (See Below). Denies: Afib, Blood Clots/VTE/DVT, CAD, Heart Failure, Heart Murmur, Hypertension, Syncope Other Cardiovascular History: Cardiomegaly by chest x-ray, chronic bradycardia of unknown etiology initially diagnosed on 12/04/13 with apparent cardiology consultation at that time, history of dyslipidemia and mild obesity with no current medical therapy. Respiratory History: Reports: Asthma, Bronchitis, Recurrent, COPD, Intubation, Previous, Other (See Below). Denies: Intubation, Difficult, PE, Pneumonia, Recurrent, Pneumothorax, Pulmonary Fibrosis, Sleep Apnea, TB Other Respiratory History: Intubation with cholecystectomy Gastrointestinal History: Reports: Cholelithiasis, Chronic Constipation, Diverticulosis, Gastritis, GERD, Hemorrhoids, Hiatal Hernia, Other (See Below). Denies: Celiac Disease, Chronic Diarrhea, Colon Polyp, Fecal Incontinence, Hepatitis, Inflammatory Bowel Disease, Irritable Bowel Syndrome, Jaundice, Pancreatitis, PUD Other Gastrointestinal History: Small hiatal hernia with peptic reflux disease by upper GI and small bowel series, dysfunctional gallbladder requiring surgery as below, diverticulosis by CT scan, negative workup for suspected Crohn's disease with previous EGD and colonoscopy by patient history Genitourinary History: Reports: None. Denies: Acute Renal Failure, BPH, Chronic Renal Insuffiency, Renal Calculus, STD, Urinary Incontinence, UTI, Recurrent Musculoskeletal History: Reports: Arthritis, Back Pain, Chronic, Fracture, Osteoarthritis, Other (See Below). Denies: Gout, Neck Pain, Chronic, RA, SLE Other Musculoskeletal History: Chip fracture of the distal phalanx of digit #2 of the left foot on 05/07/15 Neurological History: Reports: Headaches, Chronic, Migraines. Denies: Cerebral Aneurysms, Concussion, CVA, Head Trauma, MS, Neuropathy, Peripheral, Parkinson's, Seizure, TIA Psychiatric History: Reports: Addiction, Anxiety, Depression, Other (See Below). Denies: Abuse, Victim of, ADD, ADHD, Psych Hospitalization(s), Suicide Attempt, Suicidal Ideation Other Psychiatric History: Tobacco and marijuana use as below Endocrine/Metabolic History: Reports: Obesity/BMI 30+. Denies: Diabetes, Type I, Diabetes, Type II, Diabetes Mellitus, Type 3c, Hypothyroidism, IDDM Hematologic History: Reports: None. Denies: Anemia, Blood Transfusion(s), Iron Deficiency Immunologic History: Reports: None. Denies: AIDS, HIV, SLE Oncologic (Cancer) History: Reports: None. Denies: Basal Cell Carcinoma, Hodgkin's Lymphoma, Leukemia, Lymphoma, Malignant Melanoma, Non-Hodgkin's Lymph carroll, Squamous Cell Carcinoma Dermatologic History: Reports: Cellulitis, Other (See Below). Denies: Eczema, Psoriasis Other Dermatologic History: Recurrent ingrown toenails. - Infectious Disease History Infectious Disease History: Reports: Chicken Pox. Denies: C-Difficile, Measles, Meningitis, Mononucleosis, MRSA, Mumps, Novel Coronavirus, Pertussis (Whooping Cough), Rheumatic Fever, Rubella, Scarlet Fever, Shingles, TB, VRE - Past Surgical History Endocrine Surgical History: Reports: None. Denies: Thyroid Biopsy - Past Imaging History Past Imaging History: Reports: Angiography (Negative heart catheterization on 11/26/13 at [facility] in [place] by patient history.), CAT Scan (CT scan of the head on 06/02/16 and 01/31/15. CT of the abdomen and pelvis on 04/24/16 with previous evaluations on 06/25/14 and 05/14/13.), Upper GI X-Ray/Series (08/05/14.) Social & Family History - Family History Family Medical History: No Pertinent Family History Cardiac: Reports: Hypertension, Other (See Below) Other Cardiac Family History: Hypertension in mother Endocrine/Metabolic: Reports: Diabetes, type II, IDDM, Other (See Below) Other Endocrine/Metabolic Family History: IDDM in mother Oncologic: Reports: Other (See Below) Other Oncologic Family History: Maternal aunt with unknown type of cancer - Caffeine Use Caffeine Use: Reports: Soda (6 sodas per day), Tea (Four glasses per day). Denies: Coffee, Energy Drinks Caffeine Use Comment: 6 sodas per day - Sexual History Sexual History: Reports: Single Partner - Living Situation & Occupation Living situation: Reports: (2009, 4 children), with Family Occupation: Employed ([employer]. 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 ED EXAM, GENERAL - Physical Exam Exam: See Below Exam Limited By: No Limitations General Appearance: Alert, WD/WN, No Apparent Distress (Male) Exam: Other (very small abscess/folliculitis noted to posterior region of scrotum. No surrounding erythema. No testicular pain/mass. ) Course - Vital Signs Last Recorded V/S: Last Vital Signs Temp 36.6 C 09/24/20 15:58 Pulse 67 09/24/20 15:58 Resp 16 09/24/20 15:58 BP 120/68 09/24/20 15:58 Pulse Ox 98 09/24/20 15:58 - Re-Assessments/Exams Free Text/Narrative Re-Assessment/Exam: 09/24/20 17:35 Attempted to squeeze the lesion-it is too small to I and D. There does not appear to be a collection of fluid at this lesion at this point. Departure - Departure Time of Disposition: 16:45 Disposition: Home, Self-Care 01 Clinical Impression: Abscess - Discharge Information Instructions: Skin Abscess Referrals: Nelia Luo PA-C [Primary Care Provider] - Forms: ED Department Discharge Additional Instructions: Bactrim DS 1 tab twice daily for 10 days Warm pack area twice daily The area should go away without any intervention, as it is quite small. Sepsis Event Note (ED) - Evaluation Sepsis Screening Result: No Definite Risk - Focused Exam Vital Signs: Vital Signs Temp Pulse Resp BP Pulse Ox 09/24/20 15:58 36.6 C 67 16 120/68 98 - Problem List Review Problem List Initiated/Reviewed/Updated: Yes - Assessment/Plan Plan: Bactrim DS 1 tab twice daily for 10 days Warm pack area twice daily The area should go away without any intervention, as it is quite small.
== END 2020-09-24 16:22 | disposition home or self-care (01) ==
LOC: LL.ED 15:55
DX: N49.2 Inflammatory disorders of scrotum (principal); J44.9 Chronic obstructive pulmonary disease, unspecified; E66.9 Obesity, unspecified; Z68.30 Body mass index [BMI] 30.0-30.9, adult; Z91.018 Allergy to other foods; Z88.0 Allergy status to penicillin; Z91.09 Other allergy status, other than to drugs and biological substances
CPT/HCPCS: 99283

== ENCOUNTER 2022-08-19 00:04 | Emergency (ER) | payer BC, OTHER ==
[2022-08-19 00:09] VITALS: BP 137/94; PULSE 60
[2022-08-19 00:36] LABS: BASOPHILS ABSOLUTE AUTO 0.02 K/uL (0.00-0.20); BASOPHILS PERCENT AUTO 0.2 % (0.0-2.0); EOSINOPHILS ABSOLUTE AUTO 0.21 K/uL (0.00-0.50); EOSINOPHILS PERCENT AUTO 2.6 % (0.0-5.0); HEMATOCRIT 42.8 % (39.0-49.0); HEMOGLOBIN 14.8 g/dL (13.1-16.8); LYMPHOCYTES ABSOLUTE AUTO 2.94 K/uL (0.50-3.50); LYMPHOCYTES PERCENT AUTO 36.3 % (10.0-50.0); MEAN CORPUSCULAR HGB CONC 34.6 g/dL (31.7-36.0); MEAN CORPUSCULAR VOLUME 86.8 fL (84.0-98.0); MONOCYTES ABSOLUTE AUTO 0.92 K/uL (0.00-1.00); MONOCYTES PERCENT AUTO 11.4 % (2.0-14.0); NEUTROPHILS PERCENT AUTO 49.5 % (45.0-80.0); PLATELET COUNT,PLT 280 K/uL (150-350); RED BLOOD CELL COUNT 4.93 M/uL (4.33-5.41); RED CELL DISTRIBUTION WIDTH 13.2 % (11.2-14.1); WHITE BLOOD CELL COUNT,WBC 8.1 K/uL (4.0-10.2)
[2022-08-19 00:47] LABS: APPEARANCE,URINE CLEAR; BILIRUBIN,URINE NEGATIVE (NEGATIVE); COLOR,URINE YELLOW; GLUCOSE,URINE NEGATIVE (NEGATIVE); KETONES,URINE NEGATIVE (NEGATIVE); LEUKOCYTE ESTERASE,URINE NEGATIVE (NEGATIVE); NITRITE,URINE NEGATIVE (NEGATIVE); OCCULT BLOOD,URINE NEGATIVE (NEGATIVE); PROTEIN,URINE NEGATIVE (NEGATIVE); UROBILINOGEN,URINE 0.2 E.U./dL (0.2-1.0)
[2022-08-19 00:53] LABS: ALANINE AMINOTRANSFERASE,ALT 28 U/L (12-78); ALKALINE PHOSPHATASE 78 IU/L (46-116); ASPARTATE AMNIOTRANSFERASE,AST 19 U/L (15-37); BILIRUBIN TOTAL 0.3 mg/dL (0.2-1.0); BLOOD UREA NITROGEN,BUN 26 mg/dL (7-18); CHLORIDE,CL 107 mmol/L (98-107); CREATININE 0.97 mg/dL (0.51-1.17); EST CRCL DRUG DOSING (CG) 108.89 mL/min; GLUCOSE RANDOM 110 mg/dL (70-99); POTASSIUM,K 3.6 mmol/L (3.5-5.1); PROTEIN TOTAL,TP 7.3 g/dL (6.4-8.2); SODIUM,NA 141 mmol/L (136-145)
[2022-08-19 01:11] LABS: C-REACTIVE PROTEIN < 0.2 mg/dL (<=0.9); ESTIMATED GFR 100 mL/min (>=60)
[2022-08-19 01:13] LABS: AMPHETAMINES SCREEN, URINE NEGATIVE (NEGATIVE); BARBITURATE SCREEN,URINE NEGATIVE (NEGATIVE); BENZODIAZEPINES SCREEN,URINE NEGATIVE (NEGATIVE); COCAINE METABOLITES,URINE NEGATIVE (NEGATIVE); EDDP,URINE SCREEN NEGATIVE (NEGATIVE); METHAMPHETAMINES SCREEN, URINE NEGATIVE (NEGATIVE); TCA SCREEN,URINE NEGATIVE (NEGATIVE); THC SCREEN,URINE 50 NG/ML POSITIVE (NEGATIVE)
[2022-08-19 01:15] LABS: BUPRENORPHINE SCREEN,URINE NEGATIVE (NEGATIVE); OXYCODONE SCREEN,URINE NEGATIVE (NEGATIVE)
[2022-08-19 01:18] LABS: PROTHROMBIN TIME 9.7 SEC (9.0-11.1); PTT,PARTIAL THROMBOPLSTIN TIME 26.7 SEC (23.6-29.8)
== END 2022-08-19 01:55 | disposition home or self-care (01) ==
LOC: LL.ED 00:04
DX: T43.644A Poisoning by ecstasy, undetermined, initial encounter (principal); J44.9 Chronic obstructive pulmonary disease, unspecified; E66.9 Obesity, unspecified; Z68.31 Body mass index [BMI] 31.0-31.9, adult; Z91.018 Allergy to other foods; Z88.0 Allergy status to penicillin; Z87.891 Personal history of nicotine dependence
CPT/HCPCS: 36415; 80053; 80305-QW; 81003; 82947; 84484; 85025; 85610; 85730; 86140; 93005; 99284

== ENCOUNTER 2022-09-27 16:13 | Emergency (ER) | payer BC ==
[2022-09-27 16:20] VITALS: BP 125/84; PULSE 81
== END 2022-09-27 16:58 | disposition home or self-care (01) ==
LOC: LL.ED 16:13
DX: L60.0 Ingrowing nail (principal); E66.9 Obesity, unspecified; J44.9 Chronic obstructive pulmonary disease, unspecified; Z88.0 Allergy status to penicillin; Z91.018 Allergy to other foods
CPT/HCPCS: 99283

== ENCOUNTER 2022-09-30 08:01 | Emergency (ER) | payer BC ==
[2022-09-30 08:04] VITALS: BP 110/70; PULSE 60
[2022-09-30 08:51] LABS: BASOPHILS ABSOLUTE AUTO 0.02 K/uL (0.00-0.20); BASOPHILS PERCENT AUTO 0.3 % (0.0-2.0); EOSINOPHILS ABSOLUTE AUTO 0.15 K/uL (0.00-0.50); HEMATOCRIT 43.3 % (39.0-49.0); LYMPHOCYTES ABSOLUTE AUTO 2.23 K/uL (0.50-3.50); LYMPHOCYTES PERCENT AUTO 29.3 % (10.0-50.0); MEAN CORPUSCULAR HGB CONC 34.6 g/dL (31.7-36.0); MEAN CORPUSCULAR VOLUME 86.6 fL (84.0-98.0); MONOCYTES ABSOLUTE AUTO 0.68 K/uL (0.00-1.00); MONOCYTES PERCENT AUTO 8.9 % (2.0-14.0); NEUTROPHILS ABSOLUTE AUTO 4.54 K/uL (1.40-7.00); NEUTROPHILS PERCENT AUTO 59.5 % (45.0-80.0); PLATELET COUNT,PLT 313 K/uL (150-350); RED CELL DISTRIBUTION WIDTH 13.2 % (11.2-14.1); WHITE BLOOD CELL COUNT,WBC 7.6 K/uL (4.0-10.2)
[2022-09-30 09:02] LABS: ALBUMIN 3.8 g/dL (3.4-5.0); BILIRUBIN TOTAL 0.7 mg/dL (0.2-1.0); CALCIUM 8.6 mg/dL (8.5-10.1); CARBON DIOXIDE,CO2 22.6 mmol/L (21.0-32.0); CREATININE 0.97 mg/dL (0.51-1.17); EST CRCL DRUG DOSING (CG) 108.89 mL/min; ETHANOL BLOOD MEDICAL 0.003 g/dL (0.000-0.080); POTASSIUM,K 3.3 mmol/L (3.5-5.1); PROTEIN TOTAL,TP 7.2 g/dL (6.4-8.2)
[2022-09-30 09:04] LABS: ANION GAP 15.7 meq/L (7-15)
[2022-09-30] MEDS ORDERED: Ondansetron 4 MG Tab.DIS PO ONE (09:05)
[2022-09-30] MEDS ORDERED: Potassium Bicarbonate/Cit Ac 20 MEQ Effervescent Tab PO ONE (09:05)
[2022-09-30] MEDS ORDERED: Take Home: Ondansetron 4 MG Tab.DIS, 5 Tab Pack PO ONE (09:06)
== END 2022-09-30 09:30 | disposition home or self-care (01) ==
LOC: LL.ED 08:01
DX: K52.9 Noninfective gastroenteritis and colitis, unspecified (principal); J44.9 Chronic obstructive pulmonary disease, unspecified; E66.9 Obesity, unspecified; Z88.0 Allergy status to penicillin; Z91.09 Other allergy status, other than to drugs and biological substances; Z68.32 Body mass index [BMI] 32.0-32.9, adult
CPT/HCPCS: 36415; 80053; 80307; 82947; 85025; 99284; A9270-GY; Q0162